=== PATIENT | female | born 1975 | race American Indian/Alaskan Native ===

== ENCOUNTER 2018-02-23 04:28 | Emergency (ER) | payer MEDICAID ==
[2018-02-23] MEDS ORDERED: ATIVAN ONE (05:02)
[2018-02-23] MEDS ORDERED: ATIVAN IV ONE (05:08)
--- NOTE | 2018-02-23 05:10 | Emergency Department Report ---
<CRISTO HANNON - Last Filed: 02/23/18 05:08> ED Seizure HPI - General Chief Complaint: Seizure Stated Complaint: SEIZURE Time Seen by Provider: 02/23/18 05:08 Source: family, EMS Mode of arrival: Stretcher Limitations: Other - History of Present Illness Initial Comments: 42-year-old patient with known seizure disorder, currently taking antiepileptic medications, had spontaneous onset of grand mal seizure at home during the evening shortly prior to arrival. EMS was called, seizure lasted for approximately 10-15 minutes until their arrival, and subsided spontaneously before EMS could give any additional medication. However, seizure recurred within about 10-15 minutes, and EMS gave 5 mg of Versed with rapid control of seizure. Patient was transported without seizure activity, but not having regained consciousness, and experienced to recurrent seizures in rapid succession shortly after arrival in the emergency department, which were treated with 2 mg of lorazepam, each time, with rapid sensation of seizure activity. - Related Data Allergies Allergy/AdvReac Type Severity Reaction Status Date / Time No Known Allergies Allergy Unverified 02/23/18 05:03 ED Review of Systems ROS: Stated complaint: SEIZURE Other details as noted in HPI ED Past Medical Hx - Past Medical History Previous Medical History?: Yes Hx Seizures: Yes ED Physical Exam - General Limitations: Other ED Course Vital Signs 02/23/18 02/23/18 05:47 07:35 Temperature 98.4 F Pulse Rate 99 H Respiratory 16 14 Rate Blood Pressure 132/83 [Right] O2 Sat by Pulse 100 100 Oximetry Critical care attestation.: If time is entered above; I have spent that time in minutes in the direct care of this critically ill patient, excluding procedure time. ED Disposition Clinical Impression: Seizure Disposition: DC-01 TO HOME OR SELFCARE Condition: Stable Instructions: Recurrent Seizures Adult (ED) Referrals: SHANKAR BROWN MD [Primary Care Provider] - 3-5 Days <RAMA PAZ - Last Filed: 02/23/18 13:56> ED Course - Reevaluation(s) Reevaluation #1: 02/23/18 13:54 Patient observed in the ER, no seizure activity observed. Patient is alert and oriented 3. I started the patient on A 500 mg twice a day. I advised the patient to follow-up with her neurologist in the next 2-3 days. I also advised the patient to return to the ER if her symptoms return. ED Medical Decision Making - Lab Data Result diagrams: 02/23/18 05:28 02/23/18 05:28 ED Disposition Is pt being admited?: No
[2018-02-23] MEDS ORDERED: ATIVAN IV PRN (05:11)
[2018-02-23 05:45] LABS: Hematocrit 35.3 % (30.3-42.9); Hemoglobin 11.5 gm/dl (10.1-14.3); Mean Corpuscular HGB Conc 33 % (30-34); Mean Corpuscular Hemoglobin 29 pg (28-32); Mean Corpuscular Volume 88 fl (79-97); Platelet Count 261 K/mm3 (140-440); Red Blood Count 4.03 M/mm3 (3.65-5.03); Red Cell Distribution Width 13.8 % (13.2-15.2)
[2018-02-23 06:00] LABS: BUN/Creatinine Ratio 30; Blood Urea Nitrogen 12 mg/dL (7-17); Calcium 8.3 mg/dL (8.4-10.2); Hemolysis Index 3
--- NOTE | 2018-02-23 06:46 | Cat Scan Report ---
FINAL REPORT PROCEDURE: CT HEAD/BRAIN WO CON TECHNIQUE: Computerized tomography of the head was performed without contrast material. HISTORY: seizure COMPARISON: No prior studies are available for comparison. FINDINGS: Skull and scalp: Normal. Paranasal sinuses: Normal. Ventricles and subarachnoid spaces: Normal. Cerebrum: No evidence of hemorrhage, acute infarction or mass . Cerebellum and brainstem: No evidence of hemorrhage, acute infarction or mass. Vasculature: Normal. Comments: None. IMPRESSION: Normal Examination
[2018-02-23] MEDS ORDERED: KEPPRA 1,000 MG/NS 0.75% 100ML 1,000 MG/100 ML BAG IV ONE ×2 (09:12→11:34)
[2018-02-23 13:20] LABS: Bacteria,Urine 1+ /HPF (Negative); Bilirubin,Urine NEG (Negative); Blood,Urine MOD (Negative); Color,Urine Yellow (Yellow); Mucus,Urine FEW /HPF; Protein,Urine <15 mg/dL mg/dL (Negative); Urobilinogen,Urine < 2.0 mg/dL (<2.0)
[2018-02-23 13:22] LABS: Amphetamine Screen,Urine PRESUMPTIVE NEGATIVE; Cannabinoid Screen,Urine PRESUMPTIVE NEGATIVE; Cocaine Screen,Urine PRESUMPTIVE NEGATIVE; Methadone Screen,Urine PRESUMPTIVE NEGATIVE; Opiate Screen,Urine PRESUMPTIVE NEGATIVE
[2018-02-23 13:43] LABS: Benzodiazepines Screen,Urine PRESUMPTIVE POSITIVE
[2018-02-23 14:52] VITALS: BP 116/84
== END 2018-02-23 14:45 | disposition home or self-care (01) ==
LOC: ED 04:28
DX: G40.909 Epilepsy, unspecified, not intractable, without status epilepticus (principal)
CPT/HCPCS: 36415; 70450; 80048; 80307; 81001; 84703; 85027; 93005; 93010; 96374; 96375; 99285; J1953; J2060

== ENCOUNTER 2018-04-14 08:03 | Outpatient (CLI) | payer MEDICAID ==
--- NOTE | 2018-04-14 13:38 | Cat Scan Report ---
CT ABDOMEN PELVIS WITH CONTRAST: HISTORY: Right lower quadrant pain, hematuria. COMPARISON: none. TECHNIQUE: Helical CT in 1.25mm intervals following IV contrast. Sagittal and coronal reconstructions. FINDINGS: Lung bases: Normal. Liver: Normal. Biliary system: Cholecystectomy. No biliary dilatation. Pancreas: Normal. Spleen: Normal. Kidneys/ureters/bladder: The 3.2 cm cyst in the mid left kidney is identified. Otherwise, the kidneys, ureters and bladder are unremarkable. Adrenal glands: Normal. Aorta: Normal. Intestines: Normal. Appendix: Normal. Pelvic viscera: A 1.5 cm right ovarian cyst is identified. The uterus and left adnexa are unremarkable. Ascites: None. Adenopathy: None. Musculoskeletal: The bony structures are intact with minimal degenerative changes. A small umbilical hernia containing fat is identified. IMPRESSION: No acute process is identified. 3.2 cm left ovarian cyst. 1.5 cm right ovarian cyst. Cholecystectomy. Small umbilical hernia containing fat.
== END 2018-04-14 08:04 | disposition home or self-care (01) ==
LOC: CT 08:03
PROVIDERS: ATTEND Nurse Practitioner
DX: Z90.49 Acquired absence of other specified parts of digestive tract (principal); N28.1 Cyst of kidney, acquired; R31.9 Hematuria, unspecified; N83.201 Unspecified ovarian cyst, right side; K42.9 Umbilical hernia without obstruction or gangrene; N83.202 Unspecified ovarian cyst, left side
CPT/HCPCS: 74177; Q9967

== ENCOUNTER 2018-11-13 02:22 | Emergency (ER) | payer MEDICAID ==
[2018-11-13] MEDS ORDERED: ATIVAN ONE ×3 (02:30→02:34)
[2018-11-13] MEDS ORDERED: KEPPRA 1,000 MG/NS 0.75% 100ML 1,000 MG/100 ML BAG IV ONE ×2 (02:33→02:40)
[2018-11-13] MEDS ORDERED: ATIVAN IV ONE (02:42)
--- NOTE | 2018-11-13 02:43 | Emergency Department Report ---
ED Seizure HPI - General Chief Complaint: Seizure Stated Complaint: SEIZURE Time Seen by Provider: 11/13/18 02:39 Source: EMS (verbal report received from EMS.ems notes not available at time of chart dictation), RN notes reviewed, old records reviewed Mode of arrival: Stretcher Limitations: Altered Mental Status - History of Present Illness Initial Comments: This is a 43-year-old female, not known to this provider previously, who may have a history of seizure disorder. The patient is brought to the hospital by EMS for reported seizing. As per verbal report from EMS, patient had normal Accu-Chek, and was shaking in the field, nontraumatic. They report that the patient has been having intermittent convulsions, and at one point, after her first episode, tolerated oral Keppra. They report the patient has been shaking on and off for around 25 minutes. They gave 2 mg of Versed in the field. Upon arrival to the ER, the patient is having generalized shaking, most prominently in her upper extremities. Her head is moving back and forth. Accu-Chek within normal limits. Patient given 2 mg of Ativan, 1 g of Keppra, and 4 mg of Ativan additionally. This terminated her convulsions. Of note, when the patient's upper extremities were lifted up individually, the patient appeared to have each extremity drop down to her side, and a slow controlled fashion, and appeared to avoid having her upper extremities fall onto her chest or forehead. Her significant other is currently in the emergency room, and he reports patient was in her usual state of health, May have missed her seizure medication earlier on today, and also reports that he and the patient got into an argument about something" I think that may have triggered her seizure." Patient is currently sleepy, and has not endorsed any complaints. Her boyfriend has indicated no fevers, vomiting, trauma, syncope. MD Complaint: seizure, possible seizure, shaking -: Gradual Description of Episode: loss of consciousness -: second(s) Witnessed:: Yes Trauma: No Seizure History: known seizure disorder, history of non-compliance Place: home Treatments Prior to Arrival: benzodiazepines - Related Data Home Medications Medication Instructions Recorded Confirmed Last Taken Ciprofloxacin HCl [Ciloxan] 5 ml OP Q2H 02/23/18 02/23/18 Unknown Sertraline [Zoloft] 200 mg PO QDAY 02/23/18 02/23/18 Unknown Previous Rx's Medication Instructions Recorded Last Taken Type RX: OXcarbazepine [Trileptal] 300 mg PO BID #60 tablet 11/13/18 Unknown Rx RX: levETIRAcetam [Keppra TAB] 750 mg PO BID #90 tablet 11/13/18 Unknown Rx Allergies Allergy/AdvReac Type Severity Reaction Status Date / Time No Known Allergies Allergy Unverified 02/23/18 05:03 ED Review of Systems ROS: Stated complaint: SEIZURE Other details as noted in HPI Comment: Unobtainable due to pts medical conditions ED Past Medical Hx - Past Medical History Hx Seizures: Yes - Social History Smoking Status: Never Smoker - Medications Home Medications: Home Medications Medication Instructions Recorded Confirmed Last Taken Type Ciprofloxacin HCl [Ciloxan] 5 ml OP Q2H 02/23/18 02/23/18 Unknown History Sertraline [Zoloft] 200 mg PO QDAY 02/23/18 02/23/18 Unknown History RX: OXcarbazepine [Trileptal] 300 mg PO BID #60 tablet 11/13/18 Unknown Rx RX: levETIRAcetam [Keppra TAB] 750 mg PO BID #90 tablet 11/13/18 Unknown Rx ED Physical Exam - General Limitations: Other (patient initially turning head back and forth, and having shaking her upper extremities) General appearance: alert, in no apparent distress - Head Head exam: Present: atraumatic, normocephalic - Eye Eye exam: Present: normal appearance, PERRL - ENT ENT exam: Present: normal exam, normal orophraynx, mucous membranes moist, normal external ear exam - Neck Neck exam: Present: normal inspection, full ROM. Absent: tenderness, meningismu s - Respiratory Respiratory exam: Present: decreased breath sounds. Absent: respiratory distress, wheezes, rales, rhonchi, stridor - Cardiovascular Cardiovascular Exam: Present: normal rhythm, tachycardia, normal heart sounds. Absent: systolic murmur, diastolic murmur, rubs, gallop - GI/Abdominal GI/Abdominal exam: Present: soft. Absent: distended, tenderness, guarding, rebound, rigid, pulsatile mass - Extremities Exam Extremities exam: Present: normal inspection, full ROM, other (2+ pulses noted in the bilateral upper, lower extremities. Compartments soft. No long bony tenderness. The pelvis is stable.). Absent: pedal edema, joint swelling, calf tenderness - Back Exam Back exam: Present: normal inspection. Absent: tenderness, CVA tenderness (R) - Neurological Exam Neurological exam: Present: altered, other (moving 4 extremities prior to ER intervention, now resting comfortably, occasionally moving 4 extremities. Patient has answered some nursing questions, but is sleepy and not answering any of my questions at this point in time. A detailed neurologic examination is not performed secondary to patient's altered mental status.) - Skin Skin exam: Present: warm, dry, intact, normal color. Absent: rash ED Course Vital Signs 11/13/18 11/13/18 11/13/18 00:51 01:00 01:22 Temperature Pulse Rate 76 72 Respiratory 20 22 Rate Blood Pressure 115/74 115/74 115/74 O2 Sat by Pulse 98 98 68 L Oximetry 11/13/18 11/13/18 11/13/18 01:30 02:28 02:30 Temperature Pulse Rate 115 H Respiratory Rate Blood Pressure 115/74 O2 Sat by Pulse 69 L 95 100 Oximetry 11/13/18 11/13/18 11/13/18 02:46 02:53 03:00 Temperature 98.5 F Pulse Rate 107 H 108 H 113 H Respiratory 24 18 25 H Rate Blood Pressure 112/61 112/67 115/74 O2 Sat by Pulse 100 98 96 Oximetry 11/13/18 11/13/18 11/13/18 03:16 03:30 03:46 Temperature Pulse Rate 115 H 120 H 115 H Respiratory 22 23 22 Rate Blood Pressure 115/74 128/81 128/81 O2 Sat by Pulse 94 96 94 Oximetry 11/13/18 11/13/18 11/13/18 04:18 04:30 04:46 Temperature Pulse Rate 112 H 113 H Respiratory 23 26 H Rate Blood Pressure 128/81 103/57 128/81 O2 Sat by Pulse 95 94 95 Oximetry 11/13/18 11/13/18 11/13/18 05:00 05:16 05:30 Temperature Pulse Rate 118 H 104 H 107 H Respiratory 18 21 21 Rate Blood Pressure 128/81 128/81 112/64 O2 Sat by Pulse 97 95 95 Oximetry 11/13/18 11/13/18 11/13/18 05:46 06:00 06:16 Temperature Pulse Rate 111 H 101 H 98 H Respiratory 24 20 20 Rate Blood Pressure 112/64 112/64 112/64 O2 Sat by Pulse 98 96 96 Oximetry 11/13/18 11/13/18 06:30 06:45 Temperature Pulse Rate 101 H Respiratory 20 20 Rate Blood Pressure 119/65 O2 Sat by Pulse 97 99 Oximetry - Reevaluation(s) Reevaluation #1: 11/13/18 03:36 Differential diagnosis, including a not limited to: Seizure, pseudoseizure, pneumonia, electrolyte derangement, urinary tract infection Assessment and plan: 43-year-old female brought to the ER by EMS with shaking, most prominently in her bilateral upper extremities, with head turning side to side, a boyfriend endorsing that they got into an argument and shortly thereafter her event was "trigger", patient is not currently seizing at this time. She is protecting her airway at this time. Screening laboratory studies, EKG, urinalysis, x-ray of the chest, noncontrast CT scan of the brain pending. We will await the return of these data points, and continue to provide supportive care to the patient. Reevaluation #2: 11/13/18 04:58 Chest x-ray negative for acute disease. Reevaluation #3: 11/13/18 05:07 CT scan of the brain is negative for acute disease Reevaluation #4: 11/13/18 05:35 Patient reassessed multiple times. No additional convulsive events. Nursing staff indicates the patient is able to follow their commands, and has answered some simple questions. Urinalysis pending at this time. I go back to evaluate the patient, she is sleeping comfortably, arousable, but still somewhat sleepy and not ready for discharge at this point in time. Care will be transferred to the oncoming physician, Dr. Prather, to reassess the patient for return to mental status baseline and discharged when able to ambulate an alert and oriented 3, and able to exhibit decision-making capacity. He will also follow up on the urinalysis. ED Medical Decision Making - Lab Data Result diagrams: 11/13/18 02:58 11/13/18 02:58 Vital Signs 11/13/18 02:53 Temperature 98.5 F Pulse Rate 108 H Respiratory 18 Rate Blood Pressure 112/67 O2 Sat by Pulse 98 Oximetry Lab Results 11/13/18 11/13/18 11/13/18 Range/Units 02:58 02:58 02:58 WBC 9.1 (4.5-11.0) K/mm3 RBC 4.13 (3.65-5.03) M/mm3 Hgb 11.8 (10.1-14.3) gm/dl Hct 36.4 (30.3-42.9) % MCV 88 (79-97) fl MCH 29 (28-32) pg MCHC 33 (30-34) % RDW 14.0 (13.2-15.2) % Plt Count 233 (140-440) K/mm3 Lymph % (Auto) 24.1 (13.4-35.0) % [place] % (Auto) 7.9 H (0.0-7.3) % Eos % (Auto) 2.8 (0.0-4.3) % Baso % (Auto) 0.8 (0.0-1.8) % Lymph # 2.2 (1.2-5.4) K/mm3 [place] # 0.7 (0.0-0.8) K/mm3 Eos # 0.3 (0.0-0.4) K/mm3 Baso # 0.1 (0.0-0.1) K/mm3 Seg Neutrophils % 64.4 (40.0-70.0) % Seg Neutrophils # 5.9 (1.8-7.7) K/mm3 Sodium 140 (137-145) mmol/L Potassium 3.6 (3.6-5.0) mmol/L Chloride 102.6 (98-107) mmol/L Carbon Dioxide 25 (22-30) mmol/L Anion Gap 16 mmol/L BUN 7 (7-17) mg/dL Creatinine 0.4 L (0.7-1.2) mg/dL Estimated GFR > 60 ml/min BUN/Creatinine Ratio 18 % Glucose 121 H (65-100) mg/dL Calcium 9.2 (8.4-10.2) mg/dL Magnesium (1.7-2.3) mg/dL Total Bilirubin 0.30 (0.1-1.2) mg/dL AST 12 (5-40) units/L ALT 12 (7-56) units/L Alkaline Phosphatase 54 (35-129) units/L Total Creatine Kinase (30-135) units/L Total Protein 6.3 (6.3-8.2) g/dL Albumin 4.2 (3.9-5) g/dL Albumin/Globulin Ratio 2.0 % Plasma/Serum Alcohol < 0.01 (0-0.07) % 11/13/18 Range/Units 02:58 WBC (4.5-11.0) K/mm3 RBC (3.65-5.03) M/mm3 Hgb (10.1-14.3) gm/dl Hct (30.3-42.9) % MCV (79-97) fl MCH (28-32) pg MCHC (30-34) % RDW (13.2-15.2) % Plt Count (140-440) K/mm3 Lymph % (Auto) (13.4-35.0) % [place] % (Auto) (0.0-7.3) % Eos % (Auto) (0.0-4.3) % Baso % (Auto) (0.0-1.8) % Lymph # (1.2-5.4) K/mm3 [place] # (0.0-0.8) K/mm3 Eos # (0.0-0.4) K/mm3 Baso # (0.0-0.1) K/mm3 Seg Neutrophils % (40.0-70.0) % Seg Neutrophils # (1.8-7.7) K/mm3 Sodium (137-145) mmol/L Potassium (3.6-5.0) mmol/L Chloride (98-107) mmol/L Carbon Dioxide (22-30) mmol/L Anion Gap mmol/L BUN (7-17) mg/dL Creatinine (0.7-1.2) mg/dL Estimated GFR ml/min BUN/Creatinine Ratio % Glucose (65-100) mg/dL Calcium (8.4-10.2) mg/dL Magnesium 1.70 (1.7-2.3) mg/dL Total Bilirubin (0.1-1.2) mg/dL AST (5-40) units/L ALT (7-56) units/L Alkaline Phosphatase (35-129) units/L Total Creatine Kinase 79 (30-135) units/L Total Protein (6.3-8.2) g/dL Albumin (3.9-5) g/dL Albumin/Globulin Ratio % Plasma/Serum Alcohol (0-0.07) % - EKG Data -: EKG Interpreted by Me EKG shows normal: sinus rhythm Rate: tachycardia - EKG Data 11/13/18 04:58 Tachycardia, 109 bpm, normal axis, QTC prolonged, not consistent with ST elevation myocardial infarction. - Radiology Data Radiology results: pending, report reviewed, image reviewed Critical Care Time: Yes Critical care time in (mins) excluding proc time.: 35 Critical care attestation.: If time is entered above; I have spent that time in minutes in the direct care of this critically ill patient, excluding procedure time. ED Disposition Clinical Impression: History of convulsions Disposition: - TO HOME OR SELFCARE Is pt being admited?: No Does the pt Need Aspirin: No Condition: Good Instructions: Recurrent Seizures Adult (ED) Additional Instructions: Do not drive or operate motor vehicles for the next 6 months. Take the medications as directed. Follow-up with your private neurologist, or any of the listed local primary neurologists, within the next 7-10 days for repeat checku p/evaluation. Return to the ER right away with lethargy, irritability, projectile vomiting, change in mental status, confusion, inability to speak, inability to breathe, new, worse or different symptoms. Prescriptions: RX: levETIRAcetam [Keppra TAB] 750 mg PO BID #90 tablet RX: OXcarbazepine [Trileptal] 300 mg PO BID #60 tablet Referrals: JOSE FELIZ MD [Staff Physician] - 3-5 Days SABINE CABRERA MD [Referring] - 3-5 Days JUAN CONNELL MD [Staff Physician] - 3-5 Days
[2018-11-13 03:18] LABS: Basophils # (Auto) 0.1 K/mm3 (0.0-0.1); Basophils % (Auto) 0.8 % (0.0-1.8); Eosinophils # (Auto) 0.3 K/mm3 (0.0-0.4); Eosinophils % (Auto) 2.8 % (0.0-4.3); Hematocrit 36.4 % (30.3-42.9); Hemoglobin 11.8 gm/dl (10.1-14.3); Lymphocytes # (Auto) 2.2 K/mm3 (1.2-5.4); Lymphocytes % (Auto) 24.1 % (13.4-35.0); Mean Corpuscular HGB Conc 33 % (30-34); Mean Corpuscular Volume 88 fl (79-97); Monocytes # (Auto) 0.7 K/mm3 (0.0-0.8); Monocytes % (Auto) 7.9 % (0.0-7.3); Platelet Count 233 K/mm3 (140-440); Red Blood Count 4.13 M/mm3 (3.65-5.03)
[2018-11-13] MEDS ORDERED: NACL 0.9% 1000 ML 1,000 ML IV ONE (03:32)
[2018-11-13 03:33] LABS: Alanine Aminotransferase 12 units/L (7-56); Albumin 4.2 g/dL (3.9-5); BUN/Creatinine Ratio 18; Blood Urea Nitrogen 7 mg/dL (7-17); Calcium 9.2 mg/dL (8.4-10.2); Hemolysis Index 11
--- NOTE | 2018-11-13 04:48 | XRay Report ---
FINAL REPORT PROCEDURE: XR CHEST 1V AP TECHNIQUE: Chest radiograph anteroposterior view. CPT 73903 HISTORY: sz ams COMPARISON: No prior studies are available for comparison. FINDINGS: Heart: Normal. Mediastinum/Vessels: Normal. Lungs/Pleural space: The lungs are clear and expanded. There is no infiltrate, effusion or pneumothor ax.. Bony thorax: No acute osseous abnormality. Life support devices: None. IMPRESSION: No acute cardiopulmonary abnormality.
--- NOTE | 2018-11-13 05:01 | Cat Scan Report ---
FINAL REPORT PROCEDURE: CT HEAD/BRAIN WO CON TECHNIQUE: Computerized tomography of the head was performed without contrast material. HISTORY: Seizure COMPARISON: No prior studies are available for comparison. FINDINGS: Skull and scalp: Normal. Paranasal sinuses: Normal. Ventricles and subarachnoid spaces: Normal. Cerebrum: No evidence of hemorrhage, acute infarction or mass . Cerebellum and brainstem: No evidence of hemorrhage, acute infarction or mass. Vasculature: Normal. Comments: None. IMPRESSION: Normal Examination
[2018-11-13 05:58] LABS: Bilirubin,Urine NEG (Negative); Blood,Urine NEG (Negative); Color,Urine Straw (Yellow); Hyaline Casts,Urine 1 /LPF; Protein,Urine <15 mg/dL mg/dL (Negative); Urobilinogen,Urine < 2.0 mg/dL (<2.0); WBC,Urine < 1.0 /HPF (0.0-6.0)
[2018-11-13 06:42] VITALS: BP 119/65
== END 2018-11-13 13:45 | disposition home or self-care (01) ==
LOC: ED 02:22
DX: G40.909 Epilepsy, unspecified, not intractable, without status epilepticus (principal)
CPT/HCPCS: 36415; 70450; 71045; 80053; 81001; 82550; 82962; 83735; 84702; 85025; 93005; 93010; 96374; 96375; 99285; G0480; J1953; J2060; 80320; 96361; 99291

== ENCOUNTER 2018-12-09 20:25 | Emergency (ER) | payer MEDICAID ==
[2018-12-09] MEDS ORDERED: MORPHINE IM ONE ×2 (20:51)
[2018-12-09] MEDS ORDERED: ZOFRAN IM ONE ×2 (20:51)
--- NOTE | 2018-12-09 20:54 | Emergency Department Report ---
ED Back Pain/Injury HPI - General Chief Complaint: Abdominal Pain Stated Complaint: BILATERAL FLANK PAIN Time Seen by Provider: 12/09/18 20:45 Source: EMS Limitations: No Limitations - History of Present Illness Initial Comments: Patient is 43 years old female with history of seizure on Keppra. Patient presented to the ER complaining of lower back pain and right flank pain for the last 4 days. Patient has been stated that patient bend to become something few days ago and since then she started having pain in her back. Patient denied any weakness, numbness or tingling sensation. No bowel or bladder incontinence. Patient also denied any fever. MD Complaint: back pain -: days(s) Radiation: none Severity: moderate Consistency: constant Improves With: immobilization Worsens With: movement Context: bending Associated Symptoms: denies other symptoms - Related Data Home Medications Medication Instructions Recorded Confirmed Last Taken Ciprofloxacin HCl [Ciloxan] 5 ml OP Q2H 02/23/18 02/23/18 Unknown Sertraline [Zoloft] 200 mg PO QDAY 02/23/18 02/23/18 Unknown Previous Rx's Medication Instructions Recorded Last Taken Type OXcarbazepine [Trileptal] 300 mg PO BID #60 tablet 11/13/18 Unknown Rx levETIRAcetam [Keppra TAB] 750 mg PO BID #90 tablet 11/13/18 Unknown Rx Allergies Allergy/AdvReac Type Severity Reaction Status Date / Time No Known Allergies Allergy Unverified 02/23/18 05:03 ED Review of Systems ROS: Stated complaint: BILATERAL FLANK PAIN Other details as noted in HPI Comment: All other systems reviewed and negative Constitutional: denies: chills, fever Respiratory: denies: cough, orthopnea, shortness of breath, SOB with exertion, SOB at rest, wheezing Cardiovascular: denies: chest pain, palpitations, dyspnea on exertion, orthopnea, edema, syncope, paroxysmal nocturnal dyspnea Gastrointestinal: denies: abdominal pain, nausea, vomiting, diarrhea, constipation, hematemesis, melena, hematochezia Musculoskeletal: back pain Neurological: denies: headache, weakness, numbness, paresthesias, confusion, abnormal gait ED Past Medical Hx - Past Medical History Hx Seizures: Yes - Surgical History Past Surgical History?: No - Social History Smoking Status: Never Smoker Substance Use Type: None - Medications Home Medications: Home Medications Medication Instructions Recorded Confirmed Last Taken Type Ciprofloxacin HCl [Ciloxan] 5 ml OP Q2H 02/23/18 02/23/18 Unknown History Sertraline [Zoloft] 200 mg PO QDAY 02/23/18 02/23/18 Unknown History OXcarbazepine [Trileptal] 300 mg PO BID #60 tablet 11/13/18 Unknown Rx levETIRAcetam [Keppra TAB] 750 mg PO BID #90 tablet 11/13/18 Unknown Rx ED Physical Exam - General Limitations: No Limitations General appearance: alert, in no apparent distress - Head Head exam: Present: atraumatic, normocephalic, normal inspection - Eye Eye exam: Present: normal appearance, PERRL - ENT ENT exam: Present: normal exam, normal orophraynx, mucous membranes moist - Neck Neck exam: Present: normal inspection, full ROM. Absent: tenderness, meningismus, lymphadenopathy, thyromegaly - Respiratory Respiratory exam: Present: normal lung sounds bilaterally. Absent: respiratory distress, wheezes, rales, rhonchi, stridor, chest wall tenderness, accessory muscle use, decreased breath sounds, prolonged expiratory - Cardiovascular Cardiovascular Exam: Present: regular rate, normal rhythm, normal heart sounds - GI/Abdominal GI/Abdominal exam: Present: soft, normal bowel sounds. Absent: distended, tenderness, guarding, rebound, rigid, organomegaly, mass, bruit, pulsatile mass, hernia - Extremities Exam Extremities exam: Present: normal inspection, full ROM, normal capillary refill. Absent: pedal edema, calf tenderness - Back Exam Back exam: Present: normal inspection, full ROM, muscle spasm. Absent: tenderness, CVA tenderness (R), paraspinal tenderness, vertebral tenderness, sally h noted - Neurological Exam Neurological exam: Present: alert, oriented X3, CN II-XII intact, normal gait, reflexes normal - Skin Skin exam: Present: warm, intact, normal color ED Course Vital Signs 12/09/18 12/09/18 20:27 20:36 Temperature 98.2 F Pulse Rate 85 Respiratory 20 20 Rate Blood Pressure 150/107 [Left] O2 Sat by Pulse 100 100 Oximetry ED Medical Decision Making - Lab Data Result diagrams: 12/09/18 21:25 12/09/18 21:25 - Radiology Data Radiology results: report reviewed - Medical Decision Making Patient is 43 years old female with history of seizure on Keppra. Patient presented to the ER complaining of lower back pain and right flank pain for the last 4 days. Patient has been stated that patient bend to become something few days ago and since then she started having pain in her back. Patient denied any weakness, numbness or tingling sensation. No bowel or bladder incontinence. Patient also denied any fever. Patient stated that she is feeling much better. A CT abdomen and pelvis u nremarkable. Urine is negative and rest of the labs are unremarkable 2. I believe patient's symptoms is most likely musculoskeletal. We will prescribe Naprosyn 500 mg twice a day for 7 days and Flexeril and advised the patient to follow up with her primary care physician in the next 2-3 days and to return to the ER if her symptoms are not improved. Critical care attestation.: If time is entered above; I have spent that time in minutes in the direct care of this critically ill patient, excluding procedure time. ED Disposition Clinical Impression: Back pain Disposition: DC-01 TO HOME OR SELFCARE Is pt being admited?: No Condition: Stable Instructions: Abdominal Pain (ED), Acute Low Back Pain (ED) Referrals: DAVIE SMITH MD [Primary Care Provider] - 3-5 Days
[2018-12-09 21:25] LABS: Bilirubin,Urine NEG (Negative); Blood,Urine SM (Negative); Color,Urine Yellow (Yellow); Mucus,Urine FEW /HPF; Protein,Urine <15 mg/dL mg/dL (Negative); Urobilinogen,Urine < 2.0 mg/dL (<2.0)
[2018-12-09 21:32] LABS: HCG Qualitative,Urine Negative (Negative)
[2018-12-09 21:37] LABS: Basophils # (Auto) 0.1 K/mm3 (0.0-0.1); Basophils % (Auto) 1.1 % (0.0-1.8); Eosinophils # (Auto) 0.4 K/mm3 (0.0-0.4); Eosinophils % (Auto) 4.4 % (0.0-4.3); Hematocrit 35.4 % (30.3-42.9); Hemoglobin 11.4 gm/dl (10.1-14.3); Lymphocytes # (Auto) 2.2 K/mm3 (1.2-5.4); Lymphocytes % (Auto) 25.2 % (13.4-35.0); Mean Corpuscular HGB Conc 32 % (30-34); Mean Corpuscular Volume 88 fl (79-97); Monocytes # (Auto) 0.7 K/mm3 (0.0-0.8); Monocytes % (Auto) 8.5 % (0.0-7.3); Platelet Count 263 K/mm3 (140-440); Red Blood Count 4.01 M/mm3 (3.65-5.03); Red Cell Distribution Width 13.9 % (13.2-15.2)
[2018-12-09 21:53] LABS: BUN/Creatinine Ratio 15; Blood Urea Nitrogen 9 mg/dL (7-17); Calcium 9.1 mg/dL (8.4-10.2); Hemolysis Index 14
--- NOTE | 2018-12-10 00:07 | Cat Scan Report ---
FINAL REPORT PROCEDURE: CT abdomen and pelvis without contrast. TECHNIQUE: Computerized axial tomography of the abdomen and pelvis was performed without intravenous contrast. This study is performed without intravascular contrast material and its sensitivity for ab dominal and pelvic pathology, including neoplasms, inflammation, abscess, free fluid, thrombosis, art erial dissection and infarction, is reduced compared with a contrast enhanced study. HISTORY: Abdominal pain, right flank pain. COMPARISON: CT abdomen and pelvis 04/14/2018. FINDINGS: There is a small nodule or cluster of 3 adjacent nodules located laterally in the right middle lobe. This appears identical to the previous study. It likely represents a benign process. The lung bases a re otherwise clear. There are no pleural effusions. The heart size is normal. The liver, pancreas and spleen are grossly normal. Cholecystectomy clips are present. There is no biliary dilatation. The ad renal glands are not enlarged. Both kidneys appear normal in size and configuration. There is a round ed area of low attenuation in the lower half of the left kidney. This represented a cyst on the previ ous study. The abdominal aorta has a normal caliber. There is no retroperitoneal adenopathy. The unop acified gastrointestinal tract is unremarkable. A normal appendix is visible. There is a small umbili ellie hernia containing fat. The bladder, uterus and adnexal regions appear normal. The regional skelet on appears intact. IMPRESSION: Small nodule or cluster of 3 smaller nodules in the right middle lobe, unchanged. Previous cholecyste ctomy. Left renal cyst. Small umbilical hernia containing fat. No definite signs of acute disease in the abdomen or pelvis.
[2018-12-10 00:40] VITALS: BP 130/78
== END 2018-12-10 00:39 | disposition home or self-care (01) ==
LOC: ED 20:25
DX: M54.5 Low back pain (principal); R10.9 Unspecified abdominal pain
CPT/HCPCS: 36415; 74176; 80048; 81001; 81025; 85025; 96372; 99284; J2270; J2405

== ENCOUNTER 2019-01-20 09:14 | Outpatient (CLI) | payer MEDICAID ==
[2019-01-20 11:25] LABS: Chol/HDL Ratio 3.53 %
== END 2019-01-20 09:15 | disposition home or self-care (01) ==
LOC: LAB 09:14
PROVIDERS: ATTEND Internal Medicine
DX: Z00.01 Encounter for general adult medical examination with abnormal findings (principal); E55.9 Vitamin D deficiency, unspecified; E66.01 Morbid (severe) obesity due to excess calories; R31.9 Hematuria, unspecified
CPT/HCPCS: 36415; 80061; 82306

== ENCOUNTER 2019-02-04 12:30 | Outpatient (CLI) | payer MEDICAID ==
--- NOTE | 2019-02-04 13:39 | Ultrasound Report ---
LEFT DIGITAL DIAGNOSTIC MAMMOGRAM and LEFT BREAST ULTRASOUND: 02/04/19 12:30:00 CLINICAL: Recalled for asymmetry. COMPARISON:11/06/18 screening FINDINGS: Lateralmedial and spot compression MLO and CC views were performed.Partial effacement of asymmetries on the spot images. This appears to be normal fibroglandular structures. Ultrasound of the left breast was performed from 11 o'clock to 1 o'clock and demonstrated normal structures with no mass, cyst or shadowing. A subtle island of fibroglandular structures is identified at 1 o'clock and this correlates with the mammographic finding. IMPRESSION: Negative mammogram and negative left breast ultrasound. BI-RADS CATEGORY: 1 -- Negative RECOMMENDATION: Routine mammographic screening in one year. ACR BI-RADS MAMMOGRAPHIC CODES: 0 = Needs additional imaging evaluation; 1 = Negative; 2 = Benign; 3 = Probably benign; 4 = Suspicious; 5 = Malignant; 6 = Known biopsy-proven malignancy COMMENT: 1. Dense breast tissue, i.e., adenosis, fibrocystic changes, etc., may obscure an underlying neoplasm. 2. Approximately 10% of cancers are not detected with mammography. 3. A negative mammography report should not delay biopsy if a clinically suspicious mass is present. COMMENT: Patient follow-up letters are generated via our [employer] application.
== END 2019-02-04 12:31 | disposition home or self-care (01) ==
LOC: MAMMO 12:30
PROVIDERS: ATTEND Internal Medicine
DX: R92.8 Other abnormal and inconclusive findings on diagnostic imaging of breast (principal)

== ENCOUNTER 2019-05-27 20:24 | Inpatient (IN) | payer MEDICAID ==
[2019-05-27] MEDS ORDERED: KEPPRA 1,000 MG/NS 0.75% 100ML 1,000 MG/100 ML BAG IV ONE (20:35)
--- NOTE | 2019-05-27 20:39 | Emergency Department Report ---
HPI - General Time Seen by Provider: 05/27/19 20:31 - HPI HPI: Room 17 The patient is a 44-year-old female presenting with chief complaint seizure. The patient poorly has a history of seizures and has been noncompliant with her medication. The patient reported having a generalized tonic-clonic seizure lasting 3 minutes. The patient was administered Versed 5 mg IV by EMS prior to arrival. The patient apparently postictal and does not respond to questions Location: [See above] Duration: [See above] Quality: [See above] Severity: [See above] Modifying factors: [see above] Context: [see above] Mode of transportation: [not driving] ED Past Medical Hx - Past Medical History Hx Seizures: Yes - Surgical History Past Surgical History?: No - Family History Family history: no significant - Social History Smoking Status: Unknown if ever smoked Substance Use Type: None - Medications Home Medications: Home Medications Medication Instructions Recorded Confirmed Last Taken Type Ciprofloxacin HCl [Ciloxan] 5 ml OP Q2H 02/23/18 02/23/18 Unknown History Sertraline [Zoloft] 200 mg PO QDAY 02/23/18 02/23/18 Unknown History OXcarbazepine [Trileptal] 300 mg PO BID #60 tablet 11/13/18 Unknown Rx levETIRAcetam [Keppra TAB] 750 mg PO BID #90 tablet 11/13/18 Unknown Rx Cyclobenzaprine [Flexeril] 10 mg PO TID PRN #20 tablet 12/10/18 Unknown Rx Naproxen [Naprosyn] 500 mg PO BID #14 tablet 12/10/18 Unknown Rx ED Review of Systems ROS: Stated complaint: SEIZURE Other details as noted in HPI Comment: Unobtainable due to pts medical conditions Physical Exam - Physical Exam Physical Exam: GENERAL: The patient is well-developed well-nourished female lying on stretcher in postictal state. [] HEENT: Normocephalic. Atraumatic. Patient has moist mucous membranes. NECK: Supple. Trachea midline CHEST/LUNGS: Clear to auscultation. There is no respiratory distress noted. HEART/CARDIOVASCULAR: Regular. There is no tachycardia. There is no gallop rub or murmur. ABDOMEN: Abdomen is soft, nontender. Patient has normal bowel sounds. There is no abdominal distention. SKIN: There is no rash. There is no edema. There is no diaphoresis. NEURO: The patient is postictal. Gag reflex present MUSCULOSKELETAL: There is no evidence of acute injury. ED Course - Reevaluation(s) Reevaluation #1: 05/27/19 21:02 Patient had a second seizure recalcitrant to a total of 4 mg of Ativan. Subsequently the decision to intubate using RSI was made for status epilepticus - Intubation Time Out Performed: Yes Sedative: Etomidate Mg Given: 20 Paralytic: Succinylcholine Mg Given: 100 Laryngoscope: Allyn Size: 3 ET Tube Size: 7 Tube Secured Depth (cm): 20 Tube Secured Location: lips Tube Placement Confirmation: visualized tube passing t, equal breath sounds bilat, no breath sounds over epi, confirmation by capnometr Patient Tolerated Procedure: well, no complications Intubation Complications: none ED Medical Decision Making - Lab Data Result diagrams: 05/27/19 21:02 05/27/19 21:02 Laboratory Tests 05/27/19 05/27/19 05/27/19 21:02 21:02 21:02 WBC 9.3 RBC 4.52 Hgb 13.1 Hct 40.1 MCV 89 MCH 29 MCHC 33 RDW 13.9 Plt Count 260 Lymph % (Auto) 36.4 H [place] % (Auto) 8.4 H Eos % (Auto) 2.4 Baso % (Auto) 1.1 Lymph # 3.4 [place] # 0.8 Eos # 0.2 Baso # 0.1 Seg Neutrophils % 51.7 Seg Neutrophils # 4.8 POC ABG pH POC ABG pCO2 POC ABG HCO3 POC ABG Total CO2 POC ABG O2 Sat POC ABG Base Excess FiO2 Sodium 142 Potassium 4.2 Chloride 105.7 Carbon Dioxide 25 Anion Gap 16 BUN 6 L Creatinine 0.5 L Estimated GFR > 60 BUN/Creatinine Ratio 12 Glucose 149 H Calcium 8.8 Magnesium 2.00 HCG, Qual Negative 05/27/19 22:06 WBC RBC Hgb Hct MCV MCH MCHC RDW Plt Count Lymph % (Auto) [place] % (Auto) Eos % (Auto) Baso % (Auto) Lymph # [place] # Eos # Baso # Seg Neutrophils % Seg Neutrophils # POC ABG pH 7.301 L POC ABG pCO2 47.6 H POC ABG HCO3 23.4 POC ABG Total CO2 25 POC ABG O2 Sat 100 POC ABG Base Excess -3 FiO2 100 Sodium Potassium Chloride Carbon Dioxide Anion Gap BUN Creatinine Estimated GFR BUN/Creatinine Ratio Glucose Calcium Magnesium HCG, Qual - EKG Data -: EKG Interpreted by Me EKG shows normal: sinus rhythm Rate: tachycardia (140 bpm) - EKG Data When compared to previous EKG there are: previous EKG unavailable Interpretation: nonspecific ST-T wave wu - Radiology Data Radiology results: report reviewed (chest x-ray, CT head), image reviewed (chest x-ray, CT head) interpreted by me: Chest x-ray-ET tube in appropriate position. No focal infiltrates, no pneumothorax [address] [address] XRay Report Signed Patient: YAYA CIFUENTES MR#: [id number] : 1975 Acct:[id number] Age/Sex: 44 / F ADM Date: 05/27/19 Loc: ED Attending Dr: Ordering Physician: KARINA VILLARREAL MD Date of Service: 05/27/19 Procedure(s): XR chest 1V ap Accession Number(s): [id number] cc: KARINA VILLARREAL MD Fluoro Time In Minutes: CHEST 1 VIEW 05/27/2019 9:44 PM INDICATION / CLINICAL INFORMATION: status post intubation. COMPARISON: None available. FINDINGS: SUPPORT DEVICES: Endotracheal tube has been placed with the tip 2.5 cm above the josué in expected position. Esophagogastric tube has been placed below the diaphragm into the stomach. HEART / MEDIASTINUM: Upper normal size and stable. LUNGS / PLEURA: Mild bibasilar densities may represent atelectasis. No acute airspace disease or significant pleural effusion. No pneumothorax. ADDITIONAL FINDINGS: No significant additional findings. IMPRESSION: 1. ET tube in expected position. Signer Name: Yaa Philip MD Signed: 05/27/2019 10:05 PM Workstation Name: [id number] Transcribed By: DT Dictated By: Rell Philip MD Electronically Authenticated By: Rell Philip MD Signed Date/Time: 05/27/192204 DD/ 03 TD/TT: [address] [address] Cat Scan Report Signed Patient: YAYA CIFUENTES MR#: [id number] : 1975 Acct:[id number] Age/Sex: 44 / F ADM Date: 05/27/19 Loc: ED Attending Dr: Ordering Physician: KARINA VILLARREAL MD Date of Service: 05/27/19 Procedure(s): CT head/brain wo con Accession Number(s): [id number] cc: KARINA VILLARREAL MD CT HEAD WITHOUT CONTRAST INDICATION : seizure, postictal. TECHNIQUE: Axial, coronal and sagittal CT imaging was performed from the skull apex through the skull base without contrast. All CT scans at this location are performed using CT dose reduction for ALARA by means of automated exposure control. COMPARISON: None available. FINDINGS: PARENCHYMA: No mass, midline shift, hemorrhage, extraaxial collection or acute territorial infarction. VENTRICLES: Symmetric and normal in size. SOFT TISSUES: Soft tissues including the orbits appear normal. BONES: No acute osseous abnormality. SINUSES: No significant abnormality. ADDITIONAL FINDINGS: None. IMPRESSION: No acute abnormality. Signer Name: Junior Avila MD Signed: 05/27/2019 11:07 PM Workstation Name: [id number] Transcribed By: [place] Dictated By: Junior Avila MD Electronically Authenticated By: Junior Avila MD Signed Date/Time: 05/27/192306 DD/ 05 TD/TT: - Differential Diagnosis epilepsy, postictal state, status epilepticus Critical Care Time: Yes Critical care time in (mins) excluding proc time.: 30 Critical care attestation.: If time is entered above; I have spent that time in minutes in the direct care of this critically ill patient, excluding procedure time. ED Disposition Clinical Impression: Status epilepticus Disposition: OP ADMIT IP TO THIS HOSP Is pt being admited?: Yes Does the pt Need Aspirin: No Condition: Stable Referrals: BERNICE FAGAN MD [Primary Care Provider] - 3-5 Days Time of Disposition: 23:19 (hospitalist paged (Dr. Amanda Brush))
[2019-05-27] MEDS ORDERED: ATIVAN IV ONE ×3 (20:45→21:06)
[2019-05-27] MEDS ORDERED: ATIVAN ONE ×4 (20:46→21:08)
[2019-05-27] MEDS ORDERED: NACL 0.9% 1000 ML 1,000 ML IV ONE (20:59)
[2019-05-27] MEDS ORDERED: ARTIFICIAL TEARS OPHTH OINT OU PRN (20:59)
[2019-05-27] MEDS ORDERED: VASELINE LIP THERAPY TP PRN (20:59)
[2019-05-27] MEDS ORDERED: MIDAZOLAM 100 MG in NACL 0.9% 80 ML IV SCH (21:00)
[2019-05-27] MEDS ORDERED: ZEMURON IV ONE ×2 (21:06→22:16)
[2019-05-27 21:36] LABS: BUN/Creatinine Ratio 12; Basophils % (Auto) 1.1 % (0.0-1.8); Blood Urea Nitrogen 6 mg/dL (7-17); Calcium 8.8 mg/dL (8.4-10.2); Eosinophils % (Auto) 2.4 % (0.0-4.3); Hematocrit 40.1 % (30.3-42.9); Hemoglobin 13.1 gm/dl (10.1-14.3); Hemolysis Index 31; Lymphocytes % (Auto) 36.4 % (13.4-35.0); Mean Corpuscular HGB Conc 33 % (30-34); Mean Corpuscular Volume 89 fl (79-97); Monocytes % (Auto) 8.4 % (0.0-7.3); Platelet Count 260 K/mm3 (140-440); Red Blood Count 4.52 M/mm3 (3.65-5.03); Red Cell Distribution Width 13.9 % (13.2-15.2)
[2019-05-27 21:37] LABS: Basophils # (Auto) 0.1 K/mm3 (0.0-0.1); Eosinophils # (Auto) 0.2 K/mm3 (0.0-0.4); Lymphocytes # (Auto) 3.4 K/mm3 (1.2-5.4); Monocytes # (Auto) 0.8 K/mm3 (0.0-0.8)
[2019-05-27] MEDS: VERSED IV PRN (22:00)
--- NOTE | 2019-05-27 22:09 | XRay Report ---
CHEST 1 VIEW 05/27/2019 9:44 PM INDICATION / CLINICAL INFORMATION: status post intubation. COMPARISON: None available. FINDINGS: SUPPORT DEVICES: Endotracheal tube has been placed with the tip 2.5 cm above the josué in expected p osition. Esophagogastric tube has been placed below the diaphragm into the stomach. HEART / MEDIASTINUM: Upper normal size and stable. LUNGS / PLEURA: Mild bibasilar densities may represent atelectasis. No acute airspace disease or sign ificant pleural effusion. No pneumothorax. ADDITIONAL FINDINGS: No significant additional findings. IMPRESSION: 1. ET tube in expected position. Signer Name: Yaa Philip MD Signed: 05/27/2019 10:05 PM Workstation Name: [id number]
[2019-05-27] MEDS ORDERED: HALDOL ONE (22:12)
[2019-05-27] MEDS ORDERED: HALDOL IM ONE (22:15)
--- NOTE | 2019-05-27 23:12 | Cat Scan Report ---
CT HEAD WITHOUT CONTRAST INDICATION : seizure, postictal. TECHNIQUE: Axial, coronal and sagittal CT imaging was performed from the skull apex through the skul l base without contrast. All CT scans at this location are performed using CT dose reduction for ALA RA by means of automated exposure control. COMPARISON: None available. FINDINGS: PARENCHYMA: No mass, midline shift, hemorrhage, extraaxial collection or acute territorial infarctio n. VENTRICLES: Symmetric and normal in size. SOFT TISSUES: Soft tissues including the orbits appear normal. BONES: No acute osseous abnormality. SINUSES: No significant abnormality. ADDITIONAL FINDINGS: None. IMPRESSION: No acute abnormality. Signer Name: Junior Avila MD Signed: 05/27/2019 11:07 PM Workstation Name: [id number]
[2019-05-27] MEDS ORDERED: TYLENOL PO PRN (23:39)
[2019-05-27] MEDS ORDERED: TYLENOL PR PRN (23:39)
[2019-05-27] MEDS ORDERED: SODIUM CHLORIDE FLUSH SYRINGE 10 ML IV PRN (23:39)
[2019-05-27] MEDS ORDERED: ZOFRAN IV PRN (23:39)
--- NOTE | 2019-05-27 23:41 | History and Physical Report ---
History of Present Illness Date of examination: 05/27/19 History of present illness: 44 -year-old woman with a history of seizure was brought to the emergency room by EMS for evaluation of seizure. She was given IV Ativan by EMS and rule out to the hospital. In the emergency room she had a not a seizure, not aborted w ith 4 mg of IV Ativan. She was subsequently intubated and started on a Versed drip, review of systems unobtainable PAST MEDICAL HISTORY:seizure PAST SURGICAL HISTORY:Unknown SOCIAL HISTORY: Unknown FAMILY HISTORY: Unknown Medications and Allergies Allergies Allergy/AdvReac Type Severity Reaction Status Date / Time No Known Allergies Allergy Unverified 02/23/18 05:03 Home Medications Medication Instructions Recorded Confirmed Last Taken Type Ciprofloxacin HCl [Ciloxan] 5 ml OP Q2H 02/23/18 02/23/18 Unknown History Sertraline [Zoloft] 200 mg PO QDAY 02/23/18 02/23/18 Unknown History OXcarbazepine [Trileptal] 300 mg PO BID #60 tablet 11/13/18 Unknown Rx levETIRAcetam [Keppra TAB] 750 mg PO BID #90 tablet 11/13/18 Unknown Rx Cyclobenzaprine [Flexeril] 10 mg PO TID PRN #20 tablet 12/10/18 Unknown Rx Naproxen [Naprosyn] 500 mg PO BID #14 tablet 12/10/18 Unknown Rx Active Meds: Active Medications Hydrophilic Ointment (Vaseline Lip Therapy) 1 applic TP Q2HR PRN PRN Reason: Dry Lips Midazolam HCl 100 mg/ Sodium (Chloride) 100 mls @ 2 mls/hr IV TITR OLENA; Protocol Last Titration: 05/27/19 22:00 Dose: 4 mg/hr, 4 mls/hr Documented by: Midazolam HCl (Versed) 2 mg IV Q10MIN PRN PRN Reason: Sedation Last Admin: 05/27/19 22:00 Dose: 2 mg Documented by: Multi-Ingred Cream/Lotion/Oil/Oint (Artificial Tears Ophth Oint) 1 applic OU Q4HR PRN PRN Reason: Dry Eye(s) Exam - Physical Exam Narrative exam: General Apperance: The patient lying in bed, breathing comfortable, intubated HEENT: Normocephalic, atraumatic. Pupils equally round and reactive to light, unable to do EOM, no sclericterus or JVD or thyromegaly or nodule. , no carotid bruit, mucous membranes moist, unable to examine oral cavity, ET tube in place Heart: S1-S2, regular is rhythm Lungs: Clear to auscultation bilaterally, breathing comfortable Abdomen: Positive bowel sounds, soft, nondistended, no organomegaly Extremities: No edema cyanosis clubbing Skin: no rash, nodule, warm and dry Neuro: Sedated - Constitutional Vitals: Temp Pulse Resp BP Pulse Ox 99 F 120 H 22 153/89 100 05/27/19 20:35 05/27/19 22:48 05/27/19 22:48 05/27/19 22:48 05/27/19 22:48 Results - Labs CBC & Chem 7: 05/27/19 21:02 05/27/19 21:02 Labs: Abnormal lab results 05/27/19 05/27/19 05/27/19 Range/Units 21:02 21:02 22:06 Lymph % (Auto) 36.4 H (13.4-35.0) % [place] % (Auto) 8.4 H (0.0-7.3) % POC ABG pH 7.301 L (7.35-7.45) POC ABG pCO2 47.6 H (35-45) BUN 6 L (7-17) mg/dL Creatinine 0.5 L (0.7-1.2) mg/dL Glucose 149 H (65-100) mg/dL - Imaging and Cardiology EKG: image reviewed Chest x-ray: report reviewed CT Scan - head: report reviewed Assessment and Plan Assessment Acute respiratory failure Status epilepticus Obesity Plan Admit to medicine Continue Versed drip, start IV fluid Start IV Keppra, consult neurology, critical care DVT prophylaxis
[2019-05-27] MEDS ORDERED: NACL 0.9% 1000 ML 1,000 ML IV SCH (23:45)
[2019-05-28] MEDS: VERSED IV PRN ×2 (00:10→01:45)
[2019-05-28] MEDS ORDERED: NACL 0.9% 1000 ML 1,000 ML ONE (00:29)
[2019-05-28] MEDS ORDERED: MORPHINE IV ONE (03:29)
[2019-05-28 04:39] LABS: Basophils # (Auto) 0.1 K/mm3 (0.0-0.1); Eosinophils % (Auto) 0.2 % (0.0-4.3); Hematocrit 34.9 % (30.3-42.9); Hemoglobin 11.3 gm/dl (10.1-14.3); Lymphocytes # (Auto) 1.1 K/mm3 (1.2-5.4); Lymphocytes % (Auto) 8.6 % (13.4-35.0); Mean Corpuscular HGB Conc 33 % (30-34); Mean Corpuscular Volume 88 fl (79-97); Monocytes # (Auto) 0.8 K/mm3 (0.0-0.8); Monocytes % (Auto) 6.6 % (0.0-7.3); Platelet Count 235 K/mm3 (140-440); Red Blood Count 3.96 M/mm3 (3.65-5.03); Red Cell Distribution Width 14.2 % (13.2-15.2)
[2019-05-28 05:12] LABS: BUN/Creatinine Ratio 10; Blood Urea Nitrogen 5 mg/dL (7-17); Calcium 8.1 mg/dL (8.4-10.2); Hemolysis Index 13
[2019-05-28] MEDS ORDERED: LOVENOX SUB-Q SCH (10:00)
[2019-05-28] MEDS: LOVENOX SUB-Q SCH (10:21)
[2019-05-28] MEDS: KEPPRA 1,000 MG in D5W 100 ML IV SCH ×2 (10:24→21:51)
--- NOTE | 2019-05-28 12:04 | Consultation ---
History of Present Illness Consult date: 05/28/19 Reason for Consult: seizure Chief complaint: i had a seizure History of present illness: pt w [facility] long standing epilepsy since childhood on oxcarbamaz, keppra , non compliant, 'i ran out of meds ' poor historian, admits to being in hosp in past for back to back sz when forgetting to take meds, poss. intubated in the past as well for sz status, pt arrives in sz status, intubated received rescue benzo and midaz, keppra, self extubated, no further sz no new focal brain complaints no CHOI fever or neck stiff no n.v.v no new n/t, or lat deficits pt doenst get warnings prior to sz last sz was within 2-3 mo ago, non compliance CT head reviewed, and NAICP groggy tired no new spine pain or rad. sx no change of vision or speech stable since this am stat eeg bedside, no status FH: neg for neuro dis SH: no t/a/d ALL: nka ROS : all other sys neg Medications and Allergies Allergies Allergy/AdvReac Type Severity Reaction Status Date / Time No Known Allergies Allergy Unverified 02/23/18 05:03 Home Medications Medication Instructions Recorded Confirmed Last Taken Type Sertraline [Zoloft] 200 mg PO QDAY 02/23/18 02/23/18 Unknown History OXcarbazepine [Trileptal] 300 mg PO BID #60 tablet 11/13/18 05/28/19 Unknown Rx levETIRAcetam [Keppra TAB] 750 mg PO BID #90 tablet 11/13/18 05/28/19 Unknown Rx Cyclobenzaprine [Flexeril] 10 mg PO TID PRN #20 tablet 12/10/18 Unknown Rx Naproxen [Naprosyn] 500 mg PO BID #14 tablet 12/10/18 Unknown Rx Active Meds: Active Medications Acetaminophen (Tylenol) 650 mg PO Q4H PRN PRN Reason: Pain MILD(1-3)/Fever >100.5/CHOI Acetaminophen (Tylenol) 650 mg GA Q4H PRN PRN Reason: Pain MILD(1-3)/Fever >100.5/CHOI Enoxaparin Sodium (Lovenox) 40 mg SUB-Q QDAY@1000 OLENA Last Admin: 05/28/19 10:21 Dose: 40 mg Documented by: Hydrophilic Ointment (Vaseline Lip Therapy) 1 applic TP Q2HR PRN PRN Reason: Dry Lips Midazolam HCl 100 mg/ Sodium (Chloride) 100 mls @ 2 mls/hr IV TITR OLENA; Protocol Last Titration: 05/28/19 07:10 Dose: 0 mg/hr, 0 mls/hr Documented by: Sodium Chloride (Nacl 0.9% 1000 Ml) 1,000 mls @ 125 mls/hr IV DIRECT OLENA Last Admin: 05/28/19 00:34 Dose: 125 mls/hr Documented by: Levetiracetam 1,000 mg/ (Dextrose) 110 mls @ 400 mls/hr IV Q12HR OLENA Last Admin: 05/28/19 10:24 Dose: 400 mls/hr Documented by: Midazolam HCl (Versed) 2 mg IV Q10MIN PRN PRN Reason: Sedation Last Admin: 05/28/19 01:45 Dose: 2 mg Documented by: Multi-Ingred Cream/Lotion/Oil/Oint (Artificial Tears Ophth Oint) 1 applic OU Q4HR PRN PRN Reason: Dry Eye(s) Ondansetron HCl (Zofran) 4 mg IV Q8H PRN PRN Reason: Nausea And Vomiting Sodium Chloride (Sodium Chloride Flush Syringe 10 Ml) 10 ml IV BID OLENA Sodium Chloride (Sodium Chloride Flush Syringe 10 Ml) 10 ml IV PRN PRN PRN Reason: LINE FLUSH Physical Examination - Vital Signs Vital Signs: Vital Signs Pulse Ox 98 05/27/19 20:34 - Constitutional General appearance: comfortable - Respiratory Respiratory: Present: chest non-tender - Cardiovascular Cardiovascular: Present: regular rate Extremities: Present: no peripheral edema bilatateraly - Gastrointestinal Gastrointestinal: Present: soft - Integumentary Integumentary: Present: normal - Neurologic Cranial nerve examination: PERRL, EOMI, VFF, V1/V2/V3 grossly intact, face symmetric, tongue midline, intact, intact shoulder shrug, intact gag reflex, intact cough reflex Speech examination: intact Sensorimotor examination: intact Detailed motor examination: full strength in all reid Motor examination - right side: 5/5: biceps, triceps, wrist flexion, wrist extension, mainspring winder and oiler, hip flexors, knee extensors, dorsiflexion, toe extension (EHL), plantarflexion Motor examination - left side: 5/5: biceps, triceps, wrist flexion, wrist extension, mainspring winder and oiler, hip flexors, knee extensors, dorsiflexion, toe extension (EHL), plantarflexion Detailed sensory examination: intact Reflexes: 2+: ankle, bicep, knee, tricep - Musculoskeletal Musculoskeletal: Present: no pain, normal range of motion - Psychiatric Psychiatric: Present: mood/affect appropriate - Additional Exam Additional Exam: aox 4 no aphasia or agnosia neck supple no cerebellar signs no extra movements Results - Laboratory Findings CBC and BMP: 05/28/19 04:11 05/28/19 04:11 Abnormal Lab Findings: Abnormal Labs 05/27/19 05/27/19 05/27/19 21:02 21:02 22:06 WBC Lymph % (Auto) 36.4 H [place] % (Auto) 8.4 H Lymph # Seg Neutrophils % Seg Neutrophils # POC ABG pH 7.301 L POC ABG pCO2 47.6 H POC ABG pO2 Chloride BUN 6 L Creatinine 0.5 L Glucose 149 H Calcium 05/28/19 05/28/19 05/28/19 04:05 04:11 04:11 WBC 12.6 H Lymph % (Auto) 8.6 L [place] % (Auto) Lymph # 1.1 L Seg Neutrophils % 83.6 H Seg Neutrophils # 10.5 H POC ABG pH 7.346 L POC ABG pCO2 POC ABG pO2 121 H Chloride 108.2 H BUN 5 L Creatinine 0.5 L Glucose 125 H Calcium 8.1 L Assessment and Plan status epilepticus , resolved, intubated benzo drip, self extubated, on keppra and oxcarb./TRILEPTAL epilepsy non compliant w meds no further sz this am EEG no status exam non focal, no CHOI or fever CT head neg. cont. keppra 750 bid and oxcarb./TRILEPTAL 300 bid dosing as per home meds sz precautions education provided on the importance of med compliance no driving and other sz precautions, pt acknowledged understanding cont current care
--- NOTE | 2019-05-28 12:37 | Consultation ---
History of Present Illness Consult date: 05/28/19 Requesting physician: ALANA TAVARES Reason for consult: other (Status Epilepticus; Acute Respiratory Failure) History of present illness: PULMONARY/CCM CONSULT NOTE (Full dictation # ) Please see dictated notes for full details Medications and Allergies Allergies Allergy/AdvReac Type Severity Reaction Status Date / Time No Known Allergies Allergy Unverified 02/23/18 05:03 Home Medications Medication Instructions Recorded Confirmed Last Taken Type Sertraline [Zoloft] 200 mg PO QDAY 02/23/18 02/23/18 Unknown History OXcarbazepine [Trileptal] 300 mg PO BID #60 tablet 11/13/18 05/28/19 Unknown Rx levETIRAcetam [Keppra TAB] 750 mg PO BID #90 tablet 11/13/18 05/28/19 Unknown Rx Cyclobenzaprine [Flexeril] 10 mg PO TID PRN #20 tablet 12/10/18 Unknown Rx Naproxen [Naprosyn] 500 mg PO BID #14 tablet 12/10/18 Unknown Rx Active Meds: Active Medications Acetaminophen (Tylenol) 650 mg PO Q4H PRN PRN Reason: Pain MILD(1-3)/Fever >100.5/CHOI Acetaminophen (Tylenol) 650 mg SD Q4H PRN PRN Reason: Pain MILD(1-3)/Fever >100.5/CHOI Enoxaparin Sodium (Lovenox) 40 mg SUB-Q QDAY@1000 OLENA Last Admin: 05/28/19 10:21 Dose: 40 mg Documented by: Hydrophilic Ointment (Vaseline Lip Therapy) 1 applic TP Q2HR PRN PRN Reason: Dry Lips Midazolam HCl 100 mg/ Sodium (Chloride) 100 mls @ 2 mls/hr IV TITR OLENA; Protocol Last Titration: 05/28/19 07:10 Dose: 0 mg/hr, 0 mls/hr Documented by: Sodium Chloride (Nacl 0.9% 1000 Ml) 1,000 mls @ 125 mls/hr IV DIRECT OLENA Last Admin: 05/28/19 00:34 Dose: 125 mls/hr Documented by: Levetiracetam 1,000 mg/ (Dextrose) 110 mls @ 400 mls/hr IV Q12HR OLENA Last Admin: 05/28/19 10:24 Dose: 400 mls/hr Documented by: Midazolam HCl (Versed) 2 mg IV Q10MIN PRN PRN Reason: Sedation Last Admin: 05/28/19 01:45 Dose: 2 mg Documented by: Multi-Ingred Cream/Lotion/Oil/Oint (Artificial Tears Ophth Oint) 1 applic OU Q4HR PRN PRN Reason: Dry Eye(s) Ondansetron HCl (Zofran) 4 mg IV Q8H PRN PRN Reason: Nausea And Vomiting Sodium Chloride (Sodium Chloride Flush Syringe 10 Ml) 10 ml IV BID OLENA Sodium Chloride (Sodium Chloride Flush Syringe 10 Ml) 10 ml IV PRN PRN PRN Reason: LINE FLUSH Physical Examination Vital signs: Vital Signs Pulse Ox 98 05/27/19 20:34 Results - Laboratory Findings CBC and BMP: 05/28/19 04:11 05/28/19 04:11 ABG POC ABG pH 7.346 (7.35-7.45) L 05/28/19 04:05 POC ABG pCO2 44.0 (35-45) 05/28/19 04:05 POC ABG pO2 121 (80-105) H 05/28/19 04:05 POC ABG HCO3 24.1 (22-26 mml/L) 05/28/19 04:05 POC ABG Total CO2 25 (23-27mmol/L) 05/28/19 04:05 POC ABG O2 Sat 98 05/28/19 04:05 Abnormal lab findings: Abnormal Labs 05/27/19 05/27/19 05/27/19 21:02 21:02 22:06 WBC Lymph % (Auto) 36.4 H [place] % (Auto) 8.4 H Lymph # Seg Neutrophils % Seg Neutrophils # POC ABG pH 7.301 L POC ABG pCO2 47.6 H POC ABG pO2 Chloride BUN 6 L Creatinine 0.5 L Glucose 149 H Calcium 05/28/19 05/28/19 05/28/19 04:05 04:11 04:11 WBC 12.6 H Lymph % (Auto) 8.6 L [place] % (Auto) Lymph # 1.1 L Seg Neutrophils % 83.6 H Seg Neutrophils # 10.5 H POC ABG pH 7.346 L POC ABG pCO2 POC ABG pO2 121 H Chloride 108.2 H BUN 5 L Creatinine 0.5 L Glucose 125 H Calcium 8.1 L
--- NOTE | 2019-05-28 13:40 | Progress Note ---
Assessment and Plan Assessment and plan: Status epilepticus Resolved. Neurology following. Cont. keppra 750 bid and oxcarb./TRILEPTAL 300 bid dosing as per home meds sz precautions Medical noncompliance. Education provided on the importance of med compliance no driving and other sz precautions, pt acknowledged understanding Disposition. Patient will transfer to the floor. History Interval history: 44-year-old female with long history of epilepsy who ran out of her medications presented with status epilepticus requiring intubation. Patient later self extubated and doing well. Hospitalist Physical - Constitutional Vitals: Temp Pulse Resp BP Pulse Ox 98.3 F 99 H 17 115/62 100 05/28/19 12:00 05/28/19 08:21 05/28/19 08:21 05/28/19 08:21 05/28/19 08:00 General appearance: Present: no acute distress, well-nourished - EENT Eyes: Present: PERRL, EOM intact ENT: hearing intact, clear oral mucosa, dentition normal - Neck Neck: Present: supple, normal ROM - Respiratory Respiratory effort: normal Respiratory: bilateral: CTA - Cardiovascular Rhythm: regular Heart Sounds: Present: S1 & S2. Absent: gallop, rub - Extremities Extremities: no ischemia, No edema, Full ROM - Abdominal General gastrointestinal: soft, non-tender, non-distended, normal bowel sounds - Integumentary Integumentary: Present: clear, warm, dry - Neurologic Neurologic: CNII-XII intact, moves all extremities Results - Labs CBC & Chem 7: 05/28/19 04:11 05/28/19 04:11 Labs: Laboratory Last Values WBC 12.6 K/mm3 (4.5-11.0) H 05/28/19 04:11 RBC 3.96 M/mm3 (3.65-5.03) 05/28/19 04:11 Hgb 11.3 gm/dl (10.1-14.3) 05/28/19 04:11 Hct 34.9 % (30.3-42.9) 05/28/19 04:11 MCV 88 fl (79-97) 05/28/19 04:11 MCH 29 pg (28-32) 05/28/19 04:11 MCHC 33 % (30-34) 05/28/19 04:11 RDW 14.2 % (13.2-15.2) 05/28/19 04:11 Plt Count 235 K/mm3 (140-440) 05/28/19 04:11 Lymph % (Auto) 8.6 % (13.4-35.0) L 05/28/19 04:11 [place] % (Auto) 6.6 % (0.0-7.3) 05/28/19 04:11 Eos % (Auto) 0.2 % (0.0-4.3) 05/28/19 04:11 Baso % (Auto) 1.0 % (0.0-1.8) 05/28/19 04:11 Lymph # 1.1 K/mm3 (1.2-5.4) L 05/28/19 04:11 [place] # 0.8 K/mm3 (0.0-0.8) 05/28/19 04:11 Eos # 0.0 K/mm3 (0.0-0.4) 05/28/19 04:11 Baso # 0.1 K/mm3 (0.0-0.1) 05/28/19 04:11 Seg Neutrophils % 83.6 % (40.0-70.0) H 05/28/19 04:11 Seg Neutrophils # 10.5 K/mm3 (1.8-7.7) H 05/28/19 04:11 POC ABG pH 7.346 (7.35-7.45) L 05/28/19 04:05 POC ABG pCO2 44.0 (35-45) 05/28/19 04:05 POC ABG pO2 121 (80-105) H 05/28/19 04:05 POC ABG HCO3 24.1 (22-26 mml/L) 05/28/19 04:05 POC ABG Total CO2 25 (23-27mmol/L) 05/28/19 04:05 POC ABG O2 Sat 98 05/28/19 04:05 POC ABG Base Excess -2 ((-2) - (+3)mmol/L) 05/28/19 04:05 35 % 05/28/19 04:05 Sodium 143 mmol/L (137-145) 05/28/19 04:11 Potassium 3.9 mmol/L (3.6-5.0) 05/28/19 04:11 Chloride 108.2 mmol/L (98-107) H 05/28/19 04:11 Carbon Dioxide 24 mmol/L (22-30) 05/28/19 04:11 15 mmol/L 05/28/19 04:11 BUN 5 mg/dL (7-17) L 05/28/19 04:11 0.5 mg/dL (0.7-1.2) L 05/28/19 04:11 Estimated GFR > 60 ml/min 05/28/19 04:11 10 % 05/28/19 04:11 Glucose 125 mg/dL (65-100) H 05/28/19 04:11 Calcium 8.1 mg/dL (8.4-10.2) L 05/28/19 04:11 Magnesium 2.00 mg/dL (1.7-2.3) 05/27/19 21:02 HCG, Qual Negative (Negative) 05/27/19 21:02 Active Medications - Current Medications Current Medications: Generic Name Dose Route Start Last Admin Trade Name Freq PRN Reason Stop Dose Admin Acetaminophen 650 mg 05/27/19 23:39 Tylenol PO Q4H PRN Pain MILD(1-3)/Fever >100.5/CHOI Acetaminophen 650 mg 05/27/19 23:39 Tylenol GA Q4H PRN Pain MILD(1-3)/Fever >100.5/CHOI Enoxaparin Sodium 40 mg 05/28/19 10:00 05/28/19 10:21 Lovenox SUB-Q 40 mg QDAY@1000 OLENA Administration Hydrophilic Ointment 1 applic 05/27/19 20:59 Vaseline Lip Therapy TP Q2HR PRN Dry Lips Midazolam HCl 100 mg/ Sodium 100 mls @ 2 mls/hr 05/27/19 21:00 05/28/19 07:10 Chloride IV 0 mg/hr TITR OLENA 0 mls/hr Titration Protocol 2 MG/HR Sodium Chloride 1,000 mls @ 125 mls/hr 05/27/19 23:45 05/28/19 00:34 Nacl 0.9% 1000 Ml IV 125 mls/hr DIRECT OLENA Administration Levetiracetam 1,000 mg/ 110 mls @ 400 mls/hr 05/28/19 10:00 05/28/19 10:24 Dextrose IV 400 mls/hr Q12HR OLENA Administration Midazolam HCl 2 mg 05/27/19 20:59 05/28/19 01:45 Versed IV 2 mg Q10MIN PRN Administration Sedation Multi-Ingred Cream/Lotion/Oil/Oint 1 applic 05/27/19 20:59 Artificial Tears Ophth Oint OU Q4HR PRN Dry Eye(s) Ondansetron HCl 4 mg 05/27/19 23:39 Zofran IV Q8H PRN Nausea And Vomiting Sodium Chloride 10 ml 05/28/19 10:00 Sodium Chloride Flush Syringe 10 Ml IV BID OLENA Sodium Chloride 10 ml 05/27/19 23:39 Sodium Chloride Flush Syringe 10 Ml IV PRN PRN LINE FLUSH
[2019-05-28] MEDS ORDERED: AMIDATE IV ONE (20:54)
[2019-05-28] MEDS ORDERED: QUELICIN ONE (20:54)
[2019-05-28] MEDS ORDERED: ZEMURON IV ONE ×2 (20:54)
[2019-05-28] MEDS: SODIUM CHLORIDE FLUSH SYRINGE 10 ML IV SCH (21:52)
--- NOTE | 2019-05-29 09:01 | Discharge Summary ---
Providers - Providers Date of Admission: 05/27/19 23:39 Date of discharge: 05/29/19 Attending physician: SUYAPA MONTALVO 05/27/19 21:00 Consult to Dietitian/Nutrition [CONS] Routine Physician Instructions: Reason For Exam: Reason for Consult: Evaluate nutritional intake 05/27/19 23:39 Consult to Physician [CONS] Routine Comment: Consulting Provider: SOFY FRANCE Physician Instructions: Reason For Exam: cc 05/27/19 23:54 Consult to Physician [CONS] Routine Comment: Consulting Provider: CHRISTIAN VILLAVICENCIO Physician Instructions: Reason For Exam: monse [facility] Reason for admission: monse d/o Condition: Stable Hospital course: 44-year-old female with long history of epilepsy who ran out of her medications presented with status epilepticus requiring intubation. The patient was initially treated with benzodiazepine drip. However, shortly after admission, patient self extubated and was not reintubated. Pulmonary saw the patient in consultation and felt the respiratory status was stable. The patient was seen by neurology in consultation as well. Etiology of seizure was related to medical noncompliance. EEG did not reveal status epilepticus. The patient's exam was nonfocal. No evidence of any infectious etiology and CT of the head was negative. Neurology recommended increasing Keppra 750 mg twice a day and continue home dose of Trileptal twice a day. Patient had no further seizure activity and is felt to have received maximal hospital benefit for discharge. Dedicated discharge time 32 minutes. Disposition: - TO HOME OR SELFCARE Time spent for discharge: 32 - Discharge Diagnoses (1) Medical non-compliance Status: Acute (2) Status epilepticus Status: Acute (3) Acute respiratory failure with hypoxia Status: Acute Core Measure Documentation - Palliative Care Palliative Care/ Comfort Measures: Not Applicable - Core Measures Any of the following diagnoses?: none Exam - Constitutional Vitals: Temp Pulse Resp BP Pulse Ox 97.0 F L 86 18 105/55 99 05/28/19 23:52 05/28/19 23:52 05/28/19 23:52 05/28/19 23:52 05/28/19 23:52 General appearance: Present: no acute distress, well-nourished - EENT Eyes: Present: PERRL ENT: hearing intact, clear oral mucosa - Neck Neck: Present: supple, normal ROM - Respiratory Respiratory effort: normal Respiratory: bilateral: CTA - Cardiovascular Heart Sounds: Present: S1 & S2. Absent: rub, click - Extremities Extremities: pulses symmetrical, No edema Peripheral Pulses: within normal limits - Abdominal General gastrointestinal: Present: soft, non-tender, non-distended, normal bowel sounds Female genitourinary: Present: normal - Integumentary Integumentary: Present: clear, warm, dry - Musculoskeletal Musculoskeletal: gait normal, strength equal bilaterally - Psychiatric Psychiatric: appropriate mood/affect, intact judgment & insight - Neurologic Neurologic: CNII-XII intact, moves all extremities Plan Activity: advance as tolerated, no driving until cleared by PCP (no driving until cleared by neurology) Weight Bearing Status: Weight Bear as Tolerated Diet: regular Follow up with: BERNICE FAGAN MD [Primary Care Provider] - 3-5 Days Prescriptions: OXcarbazepine [Trileptal] 300 mg PO BID #60 tablet
[2019-05-29] MEDS ORDERED: TRILEPTAL PO SCH (10:00)
[2019-05-29] MEDS: KEPPRA 1,000 MG in D5W 100 ML IV SCH (10:38)
[2019-05-29] MEDS: LOVENOX SUB-Q SCH (10:38)
[2019-05-29] MEDS: SODIUM CHLORIDE FLUSH SYRINGE 10 ML IV SCH (10:43)
[2019-05-29 11:00] VITALS: BP 128/81
== END 2019-05-29 12:24 | disposition home or self-care (01) | DRG 208 ==
LOC: ED 20:24 → CC1 23:39 → 3A 05-28 15:26
PROVIDERS: ADMIT Internal Medicine; ATTEND Hospitalist
PROC: 5A1935Z Respiratory Ventilation, Less than 24 Consecutive Hours (ICD-10-PCS; principal; 2019-05-27)
PROC: 0BH17EZ Insertion of Endotracheal Airway into Trachea, Via Natural or Artificial Opening (ICD-10-PCS; 2019-05-27)
PROC: 4A033R1 Measurement of Arterial Saturation, Peripheral, Percutaneous Approach (ICD-10-PCS; 2019-05-28)
DX: J96.00 Acute respiratory failure, unspecified whether with hypoxia or hypercapnia (principal); G40.901 Epilepsy, unspecified, not intractable, with status epilepticus; E66.9 Obesity, unspecified; Z68.43 Body mass index [BMI] 50.0-59.9, adult; Z91.19 Patient's noncompliance with other medical treatment and regimen
CPT/HCPCS: 36415; 36600; 70450; 71045; 80048; 82803; 83735; 84703; 85025; 87070; 87205; 93005; 93010; 95819; G0378; J0330; J1630; J1650; J1953; J2060; J2250; J7030

== ENCOUNTER 2020-01-20 00:11 | Inpatient (IN) | payer MEDICAID ==
[2020-01-20] MEDS ORDERED: MIDAZOLAM 5 MG/5 ML INJ MDV IV ONE ×2 (00:27→00:55)
[2020-01-20] MEDS ORDERED: LIP THERAPY VASELINE TP PRN (00:27)
[2020-01-20] MEDS ORDERED: MINERAL OIL/PETROLATUM, WHITE OPHTH OINT 3.5 GM OU PRN (00:27)
[2020-01-20] MEDS ORDERED: SODIUM CHLORIDE 0.9% 1000 ML 1,000 ML IV ONE (00:29)
[2020-01-20] MEDS ORDERED: levETIRAcetam 1000 MG/NS 0.75% 1,000 MG/100 ML BAG IV ONE (00:29)
--- NOTE | 2020-01-20 00:30 | Emergency Department Report ---
ED Seizure HPI - General Stated Complaint: SEIZURE Time Seen by Provider: 01/20/20 00:11 Source: EMS Mode of arrival: Stretcher Limitations: Altered Mental Status - History of Present Illness Initial Comments: Patient is a 44-year-old female with a known history of seizures that presents emergency room with status epilepticus. Patient was brought in by EMS. Report received from EMS. EMS states that the call came out as active seizure. Patient was given 5 mg of Versed by EMS for a active seizure they witnessed. Patient was then began to seize again and patient was given 2 mg of Ativan. Patient in the ER at this time is continuing to shake and has shallow respirations and gurgling respirations. MD Complaint: seizure -: Sudden Description of Episode: loss of consciousness, tonic-clonic movement Witnessed:: Yes Trauma: No Seizure History: known seizure disorder, compliant with medication Place: home Treatments Prior to Arrival: benzodiazepines, airway maneuvers, suction - Related Data Previous Rx's Medication Instructions Recorded Last Taken Type OXcarbazepine [Trileptal] 300 mg PO BID #60 tablet 05/29/19 Unknown Rx levETIRAcetam [Keppra TAB] 750 mg PO BID #60 tablet 05/29/19 Unknown Rx Allergies Allergy/AdvReac Type Severity Reaction Status Date / Time No Known Allergies Allergy Unverified 02/23/18 05:03 ED Review of Systems ROS: Stated complaint: SEIZURE Other details as noted in HPI Comment: Unobtainable due to pts medical conditions ED Past Medical Hx - Past Medical History Previous Medical History?: Yes Hx Seizures: Yes - Surgical History Past Surgical History?: No - Family History Family history: no significant - Social History Smoking Status: Never Smoker Substance Use Type: None - Medications Home Medications: Home Medications Medication Instructions Recorded Confirmed Last Taken Type OXcarbazepine [Trileptal] 300 mg PO BID #60 tablet 05/29/19 Unknown Rx levETIRAcetam [Keppra TAB] 750 mg PO BID #60 tablet 05/29/19 Unknown Rx ED Physical Exam - General Limitations: Altered Mental Status, Physical Limitation General appearance: obtunded, obese, other - Head Head exam: Present: atraumatic, normocephalic - Eye Eye exam: Present: normal appearance, PERRL Pupils: Present: normal accommodation - ENT ENT exam: Present: mucous membranes dry - Neck Neck exam: Present: normal inspection - Respiratory Respiratory exam: Present: respiratory distress, decreased breath sounds - Cardiovascular Cardiovascular Exam: Present: regular rate, normal rhythm. Absent: systolic murmur, diastolic murmur, rubs, gallop - GI/Abdominal GI/Abdominal exam: Present: soft, normal bowel sounds. Absent: distended, tende rness, guarding - Rectal Rectal exam: Present: deferred - Extremities Exam Extremities exam: Present: normal inspection - Neurological Exam Neurological exam: Present: altered - Skin Skin exam: Present: warm, dry, intact, normal color. Absent: rash ED Course Vital Signs 01/20/20 01/20/20 01/20/20 00:32 00:46 00:50 Pulse Rate 144 H 127 H 111 H Respiratory 33 H 20 30 H Rate Blood Pressure 162/103 134/88 Blood Pressure [Left] O2 Sat by Pulse 98 98 Oximetry 01/20/20 01/20/20 01/20/20 00:56 01:00 01:16 Pulse Rate 137 H 117 H 115 H Respiratory 20 23 21 Rate Blood Pressure 131/93 129/94 Blood Pressure 146/93 [Left] O2 Sat by Pulse 98 97 98 Oximetry 01/20/20 01/20/20 01/20/20 02:04 02:16 02:30 Pulse Rate Respiratory Rate Blood Pressure 141/93 124/72 124/72 Blood Pressure [Left] O2 Sat by Pulse 95 99 100 Oximetry 01/20/20 01/20/20 01/20/20 02:46 03:00 03:16 Pulse Rate 108 H 99 H Respiratory 17 20 Rate Blood Pressure 124/72 131/72 131/72 Blood Pressure [Left] O2 Sat by Pulse 100 100 100 Oximetry 01/20/20 01/20/20 01/20/20 03:30 03:46 04:00 Pulse Rate 98 H 87 80 Respiratory 8 L 20 20 Rate Blood Pressure 131/72 131/72 131/72 Blood Pressure [Left] O2 Sat by Pulse 99 100 100 Oximetry - Reevaluation(s) Reevaluation #1: Initial patient evaluation done. Patient noted to be in status epilepticus and has already had 5 mg of Versed and 2 mg of Ativan. Patient has gurgling res pirations. At this time I will moved intubation to protect the patient's airway and continue to give medications to cause seizure termination. See procedure note for intubation. Patient will be placed on a Versed drip. 01/20/20 00:11 Reevaluation #2: Patient not shaking. Patient strips have been ordered. 01/20/20 00:47 Reevaluation #3: Seizure activity has terminated. Patient currently on Versed drip and patient required more sedation and was placed on a fentanyl drip. 01/20/20 02:47 - Consultations Consultation #1: Hospitalist consulted for admission. Hospitalist to admit patient. Bridge orders placed. 01/20/20 02:57 - Intubation Time Out Performed: Yes Sedative: Versed Paralytic: Succinylcholine Laryngoscope: fiberoptic video scope Size: 4 Assist Device Used: fiberoptic device ET Tube Size: 7.5 Tube Secured Depth (cm): 22 Tube Secured Location: teeth Tube Placement Confirmation: visualized tube passing t, equal breath sounds bilat, no breath sounds over epi, confirmation by capnometr Patient Tolerated Procedure: well, no complications Intubation Complications: none ED Medical Decision Making - Lab Data Result diagrams: 01/20/20 00:57 01/20/20 00:57 - EKG Data -: EKG Interpreted by Me EKG shows normal: sinus rhythm, axis, intervals, QRS complexes, ST-T waves Rate: tachycardia - Radiology Data Radiology results: report reviewed, image reviewed interpreted by me: CHEST 1 VIEW INDICATION: ET TUBE PLACEMENT. COMPARISON: Earlier the same day FINDINGS: SUPPORT DEVICES: Endotracheal tube is been repositioned and is 3 cm above the josué. HEART / MEDIASTINUM: No significant abnormality. LUNGS / PLEURA: No significant pulmonary or pleural abnormality. No pneumothorax. ADDITIONAL FINDINGS: IMPRESSION: 1. No acute cardiopulmonary disease CT HEAD WITHOUT CONTRAST HISTORY: Seizure, Pt is on a vent and aggitated. BEST IMAGES POSSIBLE!!! COMPARISON: 05/27/2019 TECHNIQUE: CT imaging of the head was performed in the axial, sagittal, and coronal projections and bone algorithm in axial projection in the soft tissue algorithm. All CT scans at this location are performed using CT dose reduction for ALARA by means of automated exposure control. CONTRAST: None. FINDINGS: Cerebral and Cerebellar Hemispheres: No evidence of mass or mass effect. No midline shift. No acute hemorrhage. No acute cortical infarction. No extra-axial fluid collection. Ventricles: Normal in size and configuration for age. Osseous Structures: No significant abnormality. Visualized Paranasal Sinuses: No significant abnormality. Additional Findings: None IMPRESSION: 1. No acute intracranial abnormality. CHEST 1 VIEW INDICATION: ETT placement. COMPARISON: 05/27/2019 FINDINGS: SUPPORT DEVICES: Endotracheal tube is at the josué. HEART / MEDIASTINUM: No significant abnormality. LUNGS / PLEURA: No significant pulmonary or pleural abnormality. No pneumothorax. ADDITIONAL FINDINGS: IMPRESSION: 1. No acute cardiopulmonary disease 2. Place recommend repositioning of the endotracheal tube - Medical Decision Making Patient is a 44-year-old female that presents to the emergency room for status epilepticus and seizure. Patient continued to have seizure in the ER even after being given 5 mg of Versed and 2 mg of Ativan. Patient also had snoring respirations and gurgling sounds. In order to protect the patient's airway and give the patient more definitive medications to control her seizures, the patient was intubated. Patient intubated without difficulty. See procedure note. Patient then placed on a Versed drip and a fentanyl drip. Patient did not show any further seizure activity after intubation. Patient had multiple labs done and labs were essentially unremarkable. Patient had a CT of the head for the status and the patient CT of the head was negative for acute findings. Patient's initial chest x-ray was done and it showed that the ET tube was deep and the ET tube was immediately repositioned. Patient then had a repeat x-ray and it showed good positioning of the ET tube. No acute findings on chest x- rays. Patient admitted to the hospitalist service and into the ICU. Patient had critical care time documented due to her clinical scenario and multiple re-evaluations. Patient critical care time is 80 minutes. - Differential Diagnosis Status epilepticus, respiratory failure, Critical Care Time: Yes Critical care time in (mins) excluding proc time.: 80 Critical care attestation.: If time is entered above; I have spent that time in minutes in the direct care of this critically ill patient, excluding procedure time. Critical Care Time: 80 MINUTES ED Disposition Clinical Impression: Status epilepticus Acute respiratory failure Qualifiers: Respiratory failure complication: unspecified whether with hypoxia or hypercapnia Qualified Code(s): J96.00 - Acute respiratory failure, unspecified whether with hypoxia or hypercapnia Disposition: OP ADMIT IP TO THIS HOSP Is pt being admited?: Yes Does the pt Need Aspirin: No Condition: Critical Time of Disposition: 02:56
[2020-01-20] MEDS ORDERED: ONDANSETRON 4 MG/2 ML INJ IV ONE (00:41)
[2020-01-20] MEDS: MIDAZOLAM 2 MG/2 ML INJ IV PRN ×2 (00:58→03:14)
[2020-01-20] MEDS ORDERED: MIDAZOLAM 100 MG in SODIUM CHLORIDE 0.9% 80 ML IV SCH (01:00)
--- NOTE | 2020-01-20 01:04 | XRay Report ---
CHEST 1 VIEW INDICATION: ETT placement. COMPARISON: 05/27/2019 FINDINGS: SUPPORT DEVICES: Endotracheal tube is at the josué. HEART / MEDIASTINUM: No significant abnormality. LUNGS / PLEURA: No significant pulmonary or pleural abnormality. No pneumothorax. ADDITIONAL FINDINGS: IMPRESSION: 1. No acute cardiopulmonary disease 2. Place recommend repositioning of the endotracheal tube Clinical service was notified of these findings personally by Dr. Reed Signer Name: Daneil Reed MD Signed: 01/20/2020 1:00 AM Workstation Name: [id number]
[2020-01-20 01:21] LABS: Basophils # (Auto) 0.1 K/mm3 (0.0-0.1); Basophils % (Auto) 1.1 % (0.0-1.8); Eosinophils # (Auto) 0.4 K/mm3 (0.0-0.4); Eosinophils % (Auto) 3.4 % (0.0-4.3); Hematocrit 37.7 % (30.3-42.9); Lymphocytes % (Auto) 36.2 % (13.4-35.0); Mean Corpuscular HGB Conc 32 % (30-34); Mean Corpuscular Volume 89 fl (79-97); Monocytes % (Auto) 8.8 % (0.0-7.3); Platelet Count 271 K/mm3 (140-440); Red Blood Count 4.23 M/mm3 (3.65-5.03); Red Cell Distribution Width 13.8 % (13.2-15.2)
--- NOTE | 2020-01-20 01:36 | XRay Report ---
CHEST 1 VIEW INDICATION: ET TUBE PLACEMENT. COMPARISON: Earlier the same day FINDINGS: SUPPORT DEVICES: Endotracheal tube is been repositioned and is 3 cm above the josué. HEART / MEDIASTINUM: No significant abnormality. LUNGS / PLEURA: No significant pulmonary or pleural abnormality. No pneumothorax. ADDITIONAL FINDINGS: IMPRESSION: 1. No acute cardiopulmonary disease Signer Name: Daniel Reed MD Signed: 01/20/2020 1:32 AM Workstation Name: [id number]
[2020-01-20 01:38] LABS: Alanine Aminotransferase 11 units/L (7-56); BUN/Creatinine Ratio 26; Blood Urea Nitrogen 13 mg/dL (7-17); Hemolysis Index 46
[2020-01-20] MEDS ORDERED: fentaNYL 100 MCG/2 ML INJ IV PRN (02:14)
--- NOTE | 2020-01-20 02:30 | Cat Scan Report ---
CT HEAD WITHOUT CONTRAST HISTORY: Seizure, Pt is on a vent and aggitated. BEST IMAGES POSSIBLE!!! COMPARISON: 05/27/2019 TECHNIQUE: CT imaging of the head was performed in the axial, sagittal, and coronal projections and bone algori thm in axial projection in the soft tissue algorithm. All CT scans at this location are performed using CT dose reduction for ALARA by means of automated e xposure control. CONTRAST: None. FINDINGS: Cerebral and Cerebellar Hemispheres: No evidence of mass or mass effect. No midline shift. No acute hemorrhage. No acute cortical infarction. No extra-axial fluid collection. Ventricles: Normal in size and configuration for age. Osseous Structures: No significant abnormality. Visualized Paranasal Sinuses: No significant abnormality. Additional Findings: None IMPRESSION: 1. No acute intracranial abnormality. NOTE: Acute infarct may not be visible by noncontrast CT. Signer Name: Daniel Reed MD Signed: 01/20/2020 2:26 AM Workstation Name: [id number]
[2020-01-20] MEDS ORDERED: fentaNYL DRIP Premix 2,000 MCG/100 ML BAG IV SCH (03:00)
[2020-01-20 03:23] LABS: ABG Base Excess -2.2 mmol/L (-2.0-3.0); ABG HCO3 22.8 mmol/L (20.0-26.0); ABG Methemoglobin 0.5 % (0.0-1.5); ABG Oxygen Saturation 97.4 % (95.0-99.0); ABG PCO2 39.8 mm Hg; ABG PH 7.376 pH Units (7.350-7.450); ABG PO2 96.9 mm Hg (80.0-90.0)
[2020-01-20] MEDS ORDERED: MIDAZOLAM 5 MG/5 ML INJ MDV IV NR (04:00)
[2020-01-20 04:08] LABS: Bilirubin,Urine NEG (Negative); Blood,Urine MOD (Negative); Color,Urine Yellow (Yellow); Mucus,Urine FEW /HPF; WBC,Urine < 1.0 /HPF (0.0-6.0)
[2020-01-20 04:13] LABS: Amphetamine Screen,Urine PRESUMPTIVE NEGATIVE; Cannabinoid Screen,Urine PRESUMPTIVE NEGATIVE; Cocaine Screen,Urine PRESUMPTIVE NEGATIVE; Methadone Screen,Urine PRESUMPTIVE NEGATIVE; Opiate Screen,Urine PRESUMPTIVE NEGATIVE
[2020-01-20] MEDS ORDERED: ONDANSETRON 4 MG/2 ML INJ IV PRN (04:19)
[2020-01-20] MEDS ORDERED: MORPHINE 2 MG/1 ML INJ IV PRN (04:19)
--- NOTE | 2020-01-20 04:28 | History and Physical Report ---
History of Present Illness Date of examination: 01/20/20 Date of admission: 01/20/2020 Chief complaint: Seizure Disorder. History of present illness: 44-year-old female with a known history of seizure disorder presenting to the emergency room today with seizure activity. She has been compliant with her medications but has had multiple seizures today. She also has seizures while in the emergency room and was subsequently intubated and sedated for airway protection. There has been no history of chest pain or shortness of breath, no fever or chills. Family members not available to give any history. Past History Past Medical History: seizures Past Surgical History: No surgical history Social history: no significant social history Family history: no significant family history Medications and Allergies Allergies Allergy/AdvReac Type Severity Reaction Status Date / Time No Known Allergies Allergy Unverified 02/23/18 05:03 Home Medications Medication Instructions Recorded Confirmed Last Taken Type OXcarbazepine [Trileptal] 300 mg PO BID #60 tablet 05/29/19 Unknown Rx levETIRAcetam [Keppra TAB] 750 mg PO BID #60 tablet 05/29/19 Unknown Rx Active Meds: Active Medications Fentanyl (Sublimaze) 50 mcg IV Q10MIN PRN PRN Reason: ANALGESIA Hydrophilic Ointment (Vaseline Lip Therapy) 1 applic TP Q2HR PRN PRN Reason: Dry Lips Midazolam HCl 100 mg/ Sodium (Chloride) 100 mls @ 2 mls/hr IV TITR OLENA; Protocol Last Admin: 01/20/20 01:06 Dose: 2 mg/hr, 2 mls/hr Documented by: Fentanyl Citrate (Fentanyl Drip Premix) 2,000 mcg in 100 mls @ 7.28 mls/hr IV TITR OLENA; Protocol Last Titration: 01/20/20 04:10 Dose: 4 mcg/kg/hr, 29.121 mls/hr Documented by: Midazolam HCl (Versed) 2 mg IV Q10MIN PRN PRN Reason: Sedation Last Admin: 01/20/20 03:14 Dose: 2 mg Documented by: Multi-Ingred Cream/Lotion/Oil/Oint (Artificial Tears Ophth Oint) 1 applic OU Q4HR PRN PRN Reason: Dry Eye(s) Sodium Chloride (Sodium Chloride Flush Syringe 10 Ml) 10 ml IV BID OLENA Review of Systems ROS unobtainable: due to endotracheal tube Exam - Constitutional Vitals: Temp Pulse Resp BP Pulse Ox 80 20 131/72 100 01/20/20 04:00 01/20/20 04:00 01/20/20 04:00 01/20/20 04:00 General appearance: Present: well-nourished, obese - EENT Eyes: Present: PERRL, EOM intact ENT: hearing intact, clear oral mucosa, dentition normal - Neck Neck: Present: supple, normal ROM - Respiratory Respiratory effort: normal Respiratory: bilateral: CTA - Cardiovascular Rhythm: regular Heart Sounds: Present: S1 & S2 - Extremities Extremities: no ischemia, pulses intact, pulses symmetrical, No edema, Full ROM Peripheral Pulses: within normal limits - Abdominal General gastrointestinal: Present: soft, non-tender, non-distended - Integumentary Integumentary: Present: clear, warm, dry - Musculoskeletal Musculoskeletal: strength equal bilaterally - Psychiatric Psychiatric: appropriate mood/affect, intact judgment & insight - Neurologic Neurologic: CNII-XII intact, moves all extremities Results - Labs CBC & Chem 7: 01/20/20 00:57 01/20/20 00:57 Labs: Abnormal lab results 01/20/20 01/20/20 01/20/20 Range/Units 00:57 00:57 02:22 Lymph % (Auto) 36.2 H (13.4-35.0) % [place] % (Auto) 8.8 H (0.0-7.3) % [place] # 1.0 H (0.0-0.8) K/mm3 ABG pO2 96.9 H (80.0-90.0) mm Hg ABG Base Excess -2.2 L (-2.0-3.0) mmol/L ABG Hemoglobin 8.8 L (12.0-16.0) gm/dl Potassium 3.4 L (3.6-5.0) mmol/L Creatinine 0.5 L (0.7-1.2) mg/dL Glucose 150 H (65-100) mg/dL Assessment and Plan - Patient Problems (1) Status epilepticus Current Visit: Yes Status: Acute Plan to address problem: Patient placed on IV Keppra. Will monitor for seizure disorder. Neurology has been consulted for further evaluation and recommendation. (2) Acute respiratory failure Current Visit: Yes Status: Acute Qualifiers: Respiratory failure complication: unspecified whether with hypoxia or hypercapnia Qualified Code(s): J96.00 - Acute respiratory failure, unspecified whether with hypoxia or hypercapnia Plan to address problem: Patient currently intubated and sedated. Will consult outsole cementer for further evaluation. (3) DVT prophylaxis Current Visit: Yes Status: Acute Plan to address problem: Patient placed on subcutaneous heparin. (4) Full code status Current Visit: Yes Status: Acute
[2020-01-20] MEDS ORDERED: SODIUM CHLORIDE 0.9% 1000 ML 1,000 ML IV SCH (04:30)
[2020-01-20 04:39] LABS: Benzodiazepines Screen,Urine PRESUMPTIVE POSITIVE
[2020-01-20] MEDS ORDERED: fentaNYL DRIP Premix 2,000 MCG/100 ML BAG IV ONE (05:11)
[2020-01-20] MEDS ORDERED: levETIRAcetam 500 MG in DEXTROSE 5% IN WATER 100 ML IV SCH (10:00)
--- NOTE | 2020-01-20 13:06 | Event Note ---
Date: 01/20/20 Patient admitted early this morning for status epilepticus. Patient had seizure episode in the ED and was intubated for airway protection. Neurology is consulted and will follow with the patient.
--- NOTE | 2020-01-20 15:51 | Consultation ---
History of Present Illness Consult date: 01/20/20 Reason for Consult: Seizure Chief complaint: Seizure History of present illness: Patient is a 44-year-old woman with a history of seizures. She presented last night from home as she was found to be having seizures. EMS was called, and patient was noted to be having a witnessed seizure. She was given Versed, and continued to have seizures, after which she was given Ativan. Patient was then brought to [facility] for further evaluation. She was intubated in the emergency room for airway protection. This morning, the patient is noted to be awake, and following commands. She is nodding her head yes and no, and acknowledges that she was compliant with her seizure medications of Trileptal 300 mg twice a day and Keppra 750 mg twice a day at home. Past History Past Medical History: seizures Past Surgical History: No surgical history Social history: no significant social history Family history: no significant family history Medications and Allergies Allergies Allergy/AdvReac Type Severity Reaction Status Date / Time No Known Allergies Allergy Unverified 02/23/18 05:03 Home Medications Medication Instructions Recorded Confirmed Last Taken Type OXcarbazepine [Trileptal] 300 mg PO BID #60 tablet 05/29/19 Unknown Rx levETIRAcetam [Keppra TAB] 750 mg PO BID #60 tablet 05/29/19 Unknown Rx Active Meds: Active Medications Famotidine (Pepcid) 20 mg IV BID [facility] Fentanyl (Sublimaze) 50 mcg IV Q10MIN PRN PRN Reason: ANALGESIA Heparin Sodium (Porcine) (Heparin) 5,000 unit SUB-Q Q8HR [facility] Hydrophilic Ointment (Vaseline Lip Therapy) 1 applic TP Q2HR PRN PRN Reason: Dry Lips Midazolam HCl 100 mg/ Sodium (Chloride) 100 mls @ 2 mls/hr IV TITR OLENA; Protocol Last Admin: 01/20/20 01:06 Dose: 2 mg/hr, 2 mls/hr Documented by: Fentanyl Citrate (Fentanyl Drip Premix) 2,000 mcg in 100 mls @ 7.28 mls/hr IV TITR OLENA; Protocol Last Titration: 01/20/20 04:10 Dose: 4 mcg/kg/hr, 29.121 mls/hr Documented by: Sodium Chloride (Nacl 0.9% 1000 Ml) 1,000 mls @ 75 mls/hr IV DIRECT OLENA Levetiracetam 500 mg/ Dextrose 105 mls @ 400 mls/hr IV Q12HR [facility] Last Admin: 01/20/20 09:31 Dose: 400 mls/hr Documented by: Midazolam HCl (Versed) 2 mg IV Q10MIN PRN PRN Reason: Sedation Last Admin: 01/20/20 03:14 Dose: 2 mg Documented by: Morphine Sulfate (Morphine) 2 mg IV Q4H PRN PRN Reason: Pain, Moderate (4-6) Multi-Ingred Cream/Lotion/Oil/Oint (Artificial Tears Ophth Oint) 1 applic OU Q4HR PRN PRN Reason: Dry Eye(s) Ondansetron HCl (Zofran) 4 mg IV Q8H PRN PRN Reason: Nausea And Vomiting Sodium Chloride (Sodium Chloride Flush Syringe 10 Ml) 10 ml IV BID [facility] Last Admin: 01/20/20 09:31 Dose: 10 ml Documented by: Sodium Chloride (Sodium Chloride Flush Syringe 10 Ml) 10 ml IV PRN PRN PRN Reason: LINE FLUSH Review of Systems ROS unobtainable: due to endotracheal tube All systems: negative Neurological: seizures Physical Examination - Vital Signs Vital Signs: Vital Signs Pulse Resp 144 H 33 H 01/20/20 00:32 01/20/20 00:32 - Physical Exam Narrative exam: Patient is alert, awake, communicates by nodding head yes and no, follows complex commands. Patient is currently intubated. PERRL, EOMI, VFF, bilaterally intact to LT, no facial weakness noted. 5/5 strength in all extremities. Bilaterally intact light touch. 2+ reflexes throughout. - Constitutional General appearance: comfortable - EENT EENT: Present: ATNC, PERRL, mucous membranes moist - Respiratory Respiratory: Present: lungs clear, normal breath sounds - Cardiovascular Cardiovascular: Present: regular rate, normal S1, normal S2 Extremities: Present: no clubbing, cyanosis, no inflammation - Gastrointestinal Gastrointestinal: Present: normoactive bowel sounds, soft, non-tender - Musculoskeletal Musculoskeletal: Present: no fluid collection Results - Laboratory Findings CBC and BMP: 01/20/20 00:57 01/20/20 00:57 Abnormal Lab Findings: Abnormal Labs 01/20/20 01/20/20 01/20/20 00:57 00:57 02:22 Lymph % (Auto) 36.2 H [place] % (Auto) 8.8 H [place] # 1.0 H ABG pO2 96.9 H ABG Base Excess -2.2 L ABG Hemoglobin 8.8 L Potassium 3.4 L Creatinine 0.5 L Glucose 150 H Assessment and Plan Patient is a 44-year-old woman with a history of seizures, who presents with seizures. According patient's clinical findings, it is likely that she has had a seizure. As patient states that she was compliant with her seizure medications, the doses of her previous medication will be increased. Patient is now awake and alert and following commands and communicating, and therefore is not felt to be in status epilepticus at this time. Plan: 1. Seizure: CT head: No acute abnormality. Patient was initially given Versed and Ativan and intubated for airway protection. She is now awake and alert and following commands and communicating by nodding her head. Therefore she is not felt to be in status epilepticus at this time. -We will increase dose of Keppra to 1000 mg twice a day. Continue Trileptal 300 mg twice a day. Patient states that she was compliant with her medications at home. She was previously taking Keppra 750 mg twice a day and Trileptal 300 mg twice a day, therefore decision was made to increase dose of Keppra at this patricia e. -The patient is found to have a seizure, recommend Ativan 1 mg IV stat. If seizure does not resolve within 2 minutes, can repeat x1. Please call primary team and neurology stat if patient is found to have a seizure. -We will continue to monitor patient. Thank you for allowing me to take part in the care of this patient. Ricky Hannah MD Neurology
--- NOTE | 2020-01-20 17:16 | Consultation ---
History of Present Illness Consult date: 01/20/20 Requesting physician: YOMI MEREDITH Reason for consult: other (Acute Hypoxemic Respiratory Failure) History of present illness: PCCM CONSULT NOTE (Full dictation # [id number]) Please see dictated notes for full details Past History Past Medical History: seizures Past Surgical History: No surgical history Social history: no significant social history Family history: no significant family history Medications and Allergies Allergies Allergy/AdvReac Type Severity Reaction Status Date / Time No Known Allergies Allergy Unverified 02/23/18 05:03 Home Medications Medication Instructions Recorded Confirmed Last Taken Type OXcarbazepine [Trileptal] 300 mg PO BID #60 tablet 05/29/19 Unknown Rx levETIRAcetam [Keppra TAB] 750 mg PO BID #60 tablet 05/29/19 Unknown Rx Active Meds: Active Medications Famotidine (Pepcid) 20 mg IV BID [facility]LE[facility] Fentanyl (Sublimaze) 50 mcg IV Q10MIN PRN PRN Reason: ANALGESIA Heparin Sodium (Porcine) (Heparin) 5,000 unit SUB-Q Q8HR [facility] Hydrophilic Ointment (Vaseline Lip Therapy) 1 applic TP Q2HR PRN PRN Reason: Dry Lips Midazolam HCl 100 mg/ Sodium (Chloride) 100 mls @ 2 mls/hr IV TITR OLENA; Protocol Last Admin: 01/20/20 01:06 Dose: 2 mg/hr, 2 mls/hr Documented by: Fentanyl Citrate (Fentanyl Drip Premix) 2,000 mcg in 100 mls @ 7.28 mls/hr IV TITR OLENA; Protocol Last Titration: 01/20/20 04:10 Dose: 4 mcg/kg/hr, 29.121 mls/hr Documented by: Sodium Chloride (Nacl 0.9% 1000 Ml) 1,000 mls @ 75 mls/hr IV DIRECT OLE[facility] Levetiracetam (Keppra) 1,000 mg PO BID OLENA Midazolam HCl (Versed) 2 mg IV Q10MIN PRN PRN Reason: Sedation Last Admin: 01/20/20 03:14 Dose: 2 mg Documented by: Morphine Sulfate (Morphine) 2 mg IV Q4H PRN PRN Reason: Pain, Moderate (4-6) Multi-Ingred Cream/Lotion/Oil/Oint (Artificial Tears Ophth Oint) 1 applic OU Q4HR PRN PRN Reason: Dry Eye(s) Ondansetron HCl (Zofran) 4 mg IV Q8H PRN PRN Reason: Nausea And Vomiting Oxcarbazepine (Trileptal) 300 mg PO BID [facility] Sodium Chloride (Sodium Chloride Flush Syringe 10 Ml) 10 ml IV BID [facility] Last Admin: 01/20/20 09:31 Dose: 10 ml Documented by: Sodium Chloride (Sodium Chloride Flush Syringe 10 Ml) 10 ml IV PRN PRN PRN Reason: LINE FLUSH Physical Examination Vital signs: Vital Signs Pulse Resp 144 H 33 H 01/20/20 00:32 01/20/20 00:32 Results - Laboratory Findings CBC and BMP: 01/20/20 00:57 01/20/20 00:57 ABG ABG pH 7.376 pH Units (7.350-7.450) 01/20/20 02:22 ABG pCO2 39.8 mm Hg 01/20/20 02:22 ABG pO2 96.9 mm Hg (80.0-90.0) H 01/20/20 02:22 ABG O2 Saturation 97.4 % (95.0-99.0) 01/20/20 02:22 Abnormal lab findings: Abnormal Labs 01/20/20 01/20/20 01/20/20 00:57 00:57 02:22 Lymph % (Auto) 36.2 H [place] % (Auto) 8.8 H [place] # 1.0 H ABG pO2 96.9 H ABG Base Excess -2.2 L ABG Hemoglobin 8.8 L Potassium 3.4 L Creatinine 0.5 L Glucose 150 H
[2020-01-20] MEDS ORDERED: HEPARIN 5,000 UNIT/1 ML VIAL ONE (18:22)
[2020-01-20] MEDS ORDERED: FAMOTIDINE 20 MG/2 ML INJ IV ONE ×2 (18:22→22:24)
[2020-01-20] MEDS: HEPARIN 5,000 UNIT/1 ML VIAL SUB-Q SCH (18:28)
[2020-01-20] MEDS: FAMOTIDINE 20 MG/2 ML INJ IV SCH ×2 (18:28→22:32)
--- NOTE | 2020-01-20 21:15 | Consultation ---
CONSULTING PHYSICIAN: Dr. Sánchez Galloway. REASON FOR CONSULTATION: Acute hypoxemic respiratory failure, on mechanical ventilatory support, essentially status epilepticus. CHIEF COMPLAINT AND HISTORY OF PRESENT ILLNESS: The patient is a 44-year-old morbidly obese -[place] female with past medical history significant amongst other things for a diagnosis of seizures. She stated she had been compliant with her medications, but came in complaining of multiple seizures on the day of presentation. She denies any sick contacts. She denies any febrile illness. She denies any urinary tract infection or dysuria. She did say she was having some upper respiratory tract symptoms, but without significant sore throat. She denied arthralgias. While in the Emergency Room, she had another round of seizures and required emergency intubation to protect her airway. We are asked to assist with management. When I stopped by to see her, she was resting peacefully in bed. She had been a few hours seizure free. She denied any prior intubations. She denied any new onset leg pain or swelling either unilaterally or bilaterally. Denied traveled out of the [facility]. She denies a history of tobacco use or abuse whatsoever. This really is as much of the history of presentation as I have. PAST MEDICAL HISTORY: Seizure disorder, obesity. PAST SURGICAL HISTORY: Denies. MEDICATIONS: Medications she was on at the time I stopped by to see her were reviewed. Pertinent medications included the following: Pepcid 20 mg IV b.i.d., fentanyl drip had been going at 1 mcg/kg per hour, heparin 5000 units subQ q. 8 hours, Keppra 1 gram p.o. b.i.d., Versed 2 mg IV q. 10 minutes p.r.n. for sedation, Versed drip had been going at 2 mg per hour, morphine 2 mg IV q. 4 hours p.r.n. moderate pain or fevers, Zofran 4 mg IV q. 8 hours p.r.n. nausea and vomiting, Trileptal 300 mg p.o. b.i.d. ALLERGIES: No known drug allergies. DIET: Morbidly obese. Denies acute weight loss or gain in the preceding few weeks to months. FAMILY AND SOCIAL HISTORY: Lives in the community. Denies current alcohol, tobacco, or illicit drug use or abuse. Family history is otherwise noncontributory. REVIEW OF SYSTEMS: She denied overt loss of consciousness at home. She has the new onset or recurrent seizures. She denies gross hematochezia or melena. Denies gross hematuria or dysuria. Denies hematemesis. Denies hemoptysis. Denies palpitations. Denies heat or cold intolerance. Denies polydipsia or polyuria. Complete 13-system review of systems obtained. Pertinent positives and/or negatives as in body of history above, otherwise are noncontributory. PHYSICAL EXAMINATION: VITAL SIGNS: At presentation in the Emergency Room, she was afebrile, temperature 98.4 degrees rectally with a pulse of 144, respiratory rate of 33, blood pressure 162/103, O2 sats were 98%, inspired oxygen concentration was not recorded. When I stopped by to see her, O2 sats were 99% on the ventilatory mode with a pressure support of 10, PEEP of 6 on 40% FiO2. GENERAL: Morbidly obese, middle-aged -[place] female, normocephalic, atraumatic, responding appropriately with normal respiratory effort at rest. HEAD, EYES, EARS, NOSE AND THROAT: She was anicteric, no conjunctival erythema. Oropharynx was moist. Endotracheal tube was taped at the lips around 23 cm. No gross jugular venous distention. She has a large neck circumference. No thyromegaly. NECK: Grossly, there were no palpable lymph nodes in the supraclavicular or submandibular lymph node chains. LUNGS: Auscultation of both lung freire unremarkable. Lungs were clear bilaterally with good bilateral air movement. HEART: Heart sounds 1 and 2 are heard. They were regular in rate and rhythm at the time of my evaluation without overt rubs or murmurs. ABDOMEN: Protuberant, but not distended. Bowel sounds are positive. Again, nontender, no palpable hepatosplenomegaly. EXTREMITIES: Without overt digital clubbing, cyanosis, no pedal edema. Pedal pulses were 2+ bilaterally. NEUROLOGIC: Pupils were equal, round, about 4 mm, reactive to light. Extraocular muscle movements are intact. She moves all 4 extremities spontaneously. SKIN: Normal turgor without overt cellulitis or rash. PSYCHIATRIC: Her mood was normal. Affect was appropriate. LABORATORY DATA: From my review are as follows: White count 11,000; hemoglobin 12.0; hematocrit 37.7; platelet counts 271. No manual differential. Arterial blood gas showed a pH of 7.38 with a pCO2 of 40, pO2 of 97 that was on 30% FiO2 at presentation. Serum sodium was 141, potassium 3.4, chloride 104, bicarbonate 22, BUN 13, creatinine 0.5, glucose 150. Liver function test within normal limits. Urinalysis was unremarkable. Urine drug screen was negative. Alcohol level was less than 0.01 mg/dL. Tracheal aspirate is still pending. A chest x-ray was done. I have reviewed the chest x-ray. I have also reviewed the radiologist's interpretation. Post-intubation chest x-ray reveals ET tube in good position. There is some enlargement of the gastric air bubble. Otherwise, no acute process, no overt cardiomegaly, blunting opacification of the costophrenic angles is probably due to soft tissue shadows. A CT scan of her head was also done at presentation. I have reviewed the report, no acute abnormality. The urine drug screen was presumptive positive for benzodiazepines, but presumably after intubation on Versed. ASSESSMENT: 1. Acute hypoxemic respiratory failure, on mechanical ventilatory support. 2. Seizure disorder with status. 3. Morbid obesity. 4. Mild hypokalemia. PLAN: I have asked the nursing staff to hold all sedation and this has been held for about an hour. She is following commands appropriately, pulling good volumes. She has passed a spontaneous breathing trial with good ventilatory effort. She will be extubated and placed p.r.n. on bilevel positive airway pressure ventilation therapy. Aspiration precautions will be maintained post-extubation. Ventilator-associated pneumonia bundle has been addressed at this time. Oxygen will be weaned to keep sats greater than or equal to about 90%. I will put her on p.r.n. bronchodilator therapies. We will continue the Keppra at the current dose for as an antiepileptic drugs. PT/OT as necessary. Fall precautions, mobility protocols for pressure ulcer prophylaxis. Electrolytes will be addressed as necessary. Potassium will be supplemented. Bedside dysphagia screen will be done post-extubation, plus or minus swallow evaluation. She is appropriately on GI and DVT prophylaxis. Flu and pneumonia vaccination will be addressed per protocol. Thank you very much for the consult. We will follow along and make further recommendations as picture progresses/becomes clearer. She is critically ill on life-sustaining interventions including mechanical ventilatory support at high risk of from cardiopulmonary system decompensation. At this time, I spent about 35-40 minutes of critical care time without overlap and excluding any procedural time that may be necessary. JOB# [id number] LINDSAY/CASSANDRA
[2020-01-20] MEDS ORDERED: levETIRAcetam 500 MG TAB PO SCH (22:00)
[2020-01-20] MEDS ORDERED: levETIRAcetam 500 MG TAB PO ONE (22:24)
[2020-01-20] MEDS: OXcarbazepine 300 MG TAB PO SCH (22:51)
[2020-01-20] MEDS: levETIRAcetam 500 MG in DEXTROSE 5% IN WATER 100 ML IV SCH (22:55)
[2020-01-21] MEDS: levETIRAcetam 500 MG in DEXTROSE 5% IN WATER 100 ML IV SCH (00:17)
--- NOTE | 2020-01-21 00:21 | Electroencephalogram Report ---
Electroencephalogram EEG Date of exam: 01/20/20 History: Patient is a 44-year-old woman with a history of seizures, who presents with seizures. Impression: 1. Normal EEG 2. No seizures or epileptiform activity noted. Description: The waking background shows an appropriate organization with well-defined anterior posterior voltage and frequency gradients. Posteriorly, there is a well-developed alpha rhythm of [8] Hz which is symmetrical and bilaterally reactive. Anteriorly, there is a pattern of lower voltage and slightly irregular theta and beta range frequencies. Significant movement and lead artifact noted. Photic stimulation and hyperventilation were not performed. Throughout, the recording there are no epileptiform abnormalities, focal or lateralizing features, or significant interhemispheric findings. Interpretation: A normal EEG does not rule out epilepsy. Clinical correlation is recommended.
[2020-01-21] MEDS ORDERED: levETIRAcetam 1,000 MG in DEXTROSE 5% IN WATER 100 ML IV SCH (00:23)
[2020-01-21] MEDS ORDERED: LORazepam 2 MG/ML VIAL IV ONE (01:00)
[2020-01-21] MEDS ORDERED: HEPARIN 5,000 UNIT/1 ML VIAL ONE (01:43)
[2020-01-21] MEDS ORDERED: LORazepam 2 MG/ML VIAL ONE (01:50)
[2020-01-21] MEDS: HEPARIN 5,000 UNIT/1 ML VIAL SUB-Q SCH ×2 (02:00→10:49)
--- NOTE | 2020-01-21 08:58 | Progress Note ---
Assessment and Plan (1) Status epilepticus Current Visit: Yes Status: Acute Plan to address problem: Patient placed on IV Keppra. Will monitor for seizure disorder. Neurology has been consulted for further evaluation and recommendation. (2) Acute respiratory failure Current Visit: Yes Status: Acute Qualifiers: Respiratory failure complication: unspecified whether with hypoxia or hypercapnia Qualified Code(s): J96.00 - Acute respiratory failure, unspecified whether with hypoxia or hypercapnia Plan to address problem: Patient currently intubated and sedated. Will consult soup person for further evaluation. (3) DVT prophylaxis Current Visit: Yes Status: Acute Plan to address problem: Patient placed on subcutaneous heparin. (4) Full code status Current Visit: Yes Status: Acute Subjective Date of service: 01/21/20 Objective Vital Signs - 12hr 01/20/20 01/20/20 01/20/20 21:01 21:15 21:31 Temperature Pulse Rate 101 H 100 H 116 H Respiratory 23 19 15 Rate Blood Pressure 140/88 140/88 140/88 O2 Sat by Pulse 95 98 99 Oximetry 01/20/20 01/20/20 01/20/20 21:45 22:01 22:15 Temperature Pulse Rate 97 H 97 H 91 H Respiratory 22 21 22 Rate Blood Pressure 140/88 113/64 113/64 O2 Sat by Pulse 99 99 98 Oximetry 01/20/20 01/20/20 01/20/20 22:31 22:45 23:01 Temperature Pulse Rate 107 H 97 H 95 H Respiratory 19 25 H 31 H Rate Blood Pressure 113/64 113/64 128/71 O2 Sat by Pulse 100 100 100 Oximetry 01/20/20 01/20/20 01/20/20 23:15 23:31 23:45 Temperature Pulse Rate 93 H 102 H 92 H Respiratory 21 15 20 Rate Blood Pressure 128/71 128/71 128/71 O2 Sat by Pulse 97 99 98 Oximetry 01/21/20 01/21/20 01/21/20 00:01 00:15 00:31 Temperature Pulse Rate 89 96 H 98 H Respiratory 17 15 21 Rate Blood Pressure 128/71 128/71 128/71 O2 Sat by Pulse 100 96 99 Oximetry 01/21/20 01/21/20 01/21/20 00:45 01:01 01:15 Temperature Pulse Rate 88 94 H 102 H Respiratory 18 27 H 27 H Rate Blood Pressure 128/71 128/71 128/71 O2 Sat by Pulse 99 98 99 Oximetry 01/21/20 01/21/20 01/21/20 01:31 01:45 02:01 Temperature Pulse Rate 124 H 121 H 108 H Respiratory 31 H 47 H 26 H Rate Blood Pressure 128/71 128/71 128/71 O2 Sat by Pulse 99 96 99 Oximetry 01/21/20 01/21/20 01/21/20 02:15 02:31 02:45 Temperature Pulse Rate 97 H 91 H 89 Respiratory 24 19 20 Rate Blood Pressure 128/71 128/71 127/72 O2 Sat by Pulse 99 97 99 Oximetry 01/21/20 01/21/20 01/21/20 03:00 03:15 03:30 Temperature Pulse Rate 88 92 H 85 Respiratory 19 17 17 Rate Blood Pressure 124/72 124/72 121/70 O2 Sat by Pulse 99 99 99 Oximetry 01/21/20 01/21/20 01/21/20 03:45 04:00 04:15 Temperature Pulse Rate 92 H 83 87 Respiratory 18 17 19 Rate Blood Pressure 121/70 125/69 125/69 O2 Sat by Pulse 99 100 99 Oximetry 01/21/20 01/21/20 01/21/20 04:30 04:45 05:00 Temperature Pulse Rate 85 89 80 Respiratory 21 21 21 Rate Blood Pressure 107/51 107/51 116/70 O2 Sat by Pulse 100 100 99 Oximetry 01/21/20 01/21/20 01/21/20 05:15 05:21 05:30 Temperature Pulse Rate 87 79 83 Respiratory 20 21 23 Rate Blood Pressure 116/70 116/70 117/70 O2 Sat by Pulse 100 98 99 Oximetry 01/21/20 01/21/20 01/21/20 05:41 06:06 06:37 Temperature 98.6 F Pulse Rate 87 88 Respiratory 19 20 Rate Blood Pressure 117/70 107/45 O2 Sat by Pulse 100 98 100 Oximetry Gastrointestinal: normoactive bowel sounds, soft, non-tender CBC and BMP: 01/20/20 00:57 01/20/20 00:57 ABG, PT/INR, D-dimer: ABG ABG pH 7.376 pH Units (7.350-7.450) 01/20/20 02:22 ABG pCO2 39.8 mm Hg 01/20/20 02:22 ABG pO2 96.9 mm Hg (80.0-90.0) H 01/20/20 02:22 ABG O2 Saturation 97.4 % (95.0-99.0) 01/20/20 02:22 Abnormal lab findings: Abnormal Labs 01/20/20 01/20/20 01/20/20 00:57 00:57 02:22 Lymph % (Auto) 36.2 H [place] % (Auto) 8.8 H [place] # 1.0 H ABG pO2 96.9 H ABG Base Excess -2.2 L ABG Hemoglobin 8.8 L Potassium 3.4 L Creatinine 0.5 L Glucose 150 H
--- NOTE | 2020-01-21 09:46 | XRay Report ---
CHEST 1 VIEW INDICATION / CLINICAL INFORMATION: follow up respiratory failure. COMPARISON: 01/20/2020 FINDINGS: SUPPORT DEVICES: Endotracheal tube is been removed. HEART / MEDIASTINUM: No significant abnormality. LUNGS / PLEURA: No significant pulmonary or pleural abnormality.. No pneumothorax. ADDITIONAL FINDINGS: No significant additional findings. IMPRESSION: 1. No significant change. Signer Name: Kimo Conner MD Signed: 01/21/2020 9:42 AM Workstation Name: [id number]
--- NOTE | 2020-01-21 09:51 | Discharge Summary ---
Providers - Providers Date of Admission: 01/20/20 04:29 Date of discharge: 01/21/20 Attending physician: SUYAPA MONTALVO 01/20/20 00:28 Consult to Dietitian/Nutrition [CONS] Routine Physician Instructions: Reason For Exam: Reason for Consult: Evaluate nutritional intake 01/20/20 04:20 Consult to Dietitian/Nutrition [CONS] Routine Physician Instructions: Reason For Exam: Reason for Consult: Diet education Consult to Physician [CONS] Routine Comment: Consulting Provider: SOFY FRANCE Physician Instructions: Reason For Exam: acute respiratory failure, seizure disorder 01/20/20 04:23 Consult to Physician [CONS] Routine Comment: Consulting Provider: MAYI PRICE Physician Instructions: Reason For Exam: status epilepticus Primary care physician: [facility] Hospitalization Reason for admission: sz d/o Condition: Critical Procedures: EEG Hospital course: Patient is a 44-year-old woman with a history of seizures who presented the night [employer] from home with seizures. EMS was called, and patient was noted to be having a witnessed seizure. She was given Versed, and continued to have seizures, after which she was given Ativan. Patient was then brought to [facility] for further evaluation. She was intubated in the emergency room for airway protection. She acknowledged that she was compliant with her seizure medications of Trileptal 300 mg twice a day and Keppra 750 mg twice a day at home. CT scan of the head showed no acute abnormality. Neurology saw the patient in consultation and increased dose of Keppra to 1000 mg twice daily. Neurology also recommended to continue Trileptal 300 mg twice a day. The patient later underwent EEG that was found to be normal with no seizure or epileptiform activity. The patient was extubated and has done well since extubation. Patient is back to her baseline respiratory status. Patient has had no new seizure activity since admission. Therefore, patient is felt to receive maximal hospital benefit and will be discharged home. Dedicated discharge time 35 minutes. Disposition: -01 TO HOME OR SELFCARE Time spent for discharge: 35 - Discharge Diagnoses (1) Acute respiratory failure Status: Acute Qualifiers: Respiratory failure complication: unspecified whether with hypoxia or hypercapnia Qualified Code(s): J96.00 - Acute respiratory failure, unspecified whether with hypoxia or hypercapnia (2) Status epilepticus Status: Acute (3) Medical non-compliance Status: Acute Core Measure Documentation - Palliative Care Palliative Care/ Comfort Measures: Not Applicable - Core Measures Any of the following diagnoses?: none Exam - Constitutional Vitals: Temp Pulse Resp BP Pulse Ox 98.6 F 88 20 107/45 100 01/21/20 06:06 01/21/20 06:06 01/21/20 06:06 01/21/20 06:06 01/21/20 06:37 General appearance: Present: no acute distress, well-nourished - EENT Eyes: Present: PERRL ENT: hearing intact, clear oral mucosa - Neck Neck: Present: supple, normal ROM - Respiratory Respiratory effort: normal Respiratory: bilateral: CTA - Cardiovascular Heart Sounds: Present: S1 & S2. Absent: rub, click - Extremities Extremities: pulses symmetrical, No edema Peripheral Pulses: within normal limits - Abdominal General gastrointestinal: Present: soft, non-tender, non-distended, normal bowel sounds Female genitourinary: Present: normal - Integumentary Integumentary: Present: clear, warm, dry - Musculoskeletal Musculoskeletal: gait normal, strength equal bilaterally - Psychiatric Psychiatric: appropriate mood/affect, intact judgment & insight - Neurologic Neurologic: CNII-XII intact, moves all extremities Plan Activity: advance as tolerated Weight Bearing Status: Weight Bear as Tolerated Diet: regular Follow up with: PRIMARY CARE, [Primary Care Provider] - 3-5 Days MAYI PRICE MD [Staff Physician] - 7 Days Prescriptions: levETIRAcetam [Keppra TAB] 1,000 mg PO BID #60 tab OXcarbazepine [Trileptal] 300 mg PO BID #60 tablet
[2020-01-21 10:13] LABS: Basophils # (Auto) 0.1 K/mm3 (0.0-0.1); Basophils % (Auto) 0.9 % (0.0-1.8); Eosinophils # (Auto) 0.1 K/mm3 (0.0-0.4); Eosinophils % (Auto) 1.4 % (0.0-4.3); Hematocrit 36.4 % (30.3-42.9); Hemoglobin 11.6 gm/dl (10.1-14.3); Lymphocytes # (Auto) 2.5 K/mm3 (1.2-5.4); Mean Corpuscular HGB Conc 32 % (30-34); Mean Corpuscular Volume 89 fl (79-97); Monocytes % (Auto) 9.2 % (0.0-7.3); Platelet Count 247 K/mm3 (140-440); Red Blood Count 4.11 M/mm3 (3.65-5.03); Red Cell Distribution Width 13.3 % (13.2-15.2)
[2020-01-21 10:30] LABS: INR 1.02 (0.87-1.13)
[2020-01-21 10:31] LABS: Partial Thromboplastin Time 29.1 Sec. (24.2-36.6)
[2020-01-21 10:32] LABS: BUN/Creatinine Ratio 13; Blood Urea Nitrogen 5 mg/dL (7-17); Calcium 8.6 mg/dL (8.4-10.2); Hemolysis Index 7
[2020-01-21] MEDS: OXcarbazepine 300 MG TAB PO SCH (10:48)
[2020-01-21] MEDS: FAMOTIDINE 20 MG/2 ML INJ IV SCH (10:48)
[2020-01-21 13:14] VITALS: BP 145/88
--- NOTE | 2020-01-21 21:17 | Progress Note ---
Assessment and Plan Patient is a 44-year-old woman with a history of seizures, who presents with seizures. According patient's clinical findings, it is likely that she has had a seizure. As patient states that she was compliant with her seizure medications, the doses of her previous medication will be increased. Patient is now awake and alert and following commands and communicating, and therefore is not felt to be in status epilepticus at this time. Plan: 1. Seizure: CT head: No acute abnormality. Patient was initially given Versed and Ativan and intubated for airway protection. She is now awake and alert and following commands and back at baseline of mental status. -Cont. Keppra to 1000 mg twice a day. Continue Trileptal 300 mg twice a day. Patient states that she was compliant with her medications at home. She was previously taking Keppra 750 mg twice a day and Trileptal 300 mg twice a day, therefore decision was made to increase dose of Keppra at this time. -The patient is found to have a seizure, recommend Ativan 1 mg IV stat. If seizure does not resolve within 2 minutes, can repeat x1. Please call primary team and neurology stat if patient is found to have a seizure. - Recommend further w/u of LLE tenderness per primary team, recommend LE venous doppler to r/o DVT> . - Will sign off. Please call with any questions. Thank you for allowing me to take part in the care of this patient. Ricky Hannah MD Neurology Subjective Date of service: 01/21/20 Principal diagnosis: Seizure Interval history: No acute events overnight. Objective - Exam Narrative Exam: Patient is alert, awake, oriented x4, follows complex commands. PERRL, EOMI, VFF, bilaterally intact to LT, no facial weakness noted. 5/5 strength in all extremities. Bilaterally intact light touch. 2+ reflexes throughout. No dysarthria or aphasia noted. Noted to have LLE tenderness in lower calf region. - Vital Sign Vital Signs - 12hr 01/21/20 01/21/20 01/21/20 12:17 12:53 13:00 Temperature 98.4 F Pulse Rate 84 99 H Respiratory 18 Rate Blood Pressure 129/75 145/88 O2 Sat by Pulse 99 100 97 Oximetry - General Apperance Constitutional: comfortable - EENT EENT: ATNC, PERRL, mucous membranes moist, hearing intact, vision intact - Respiratory Respiratory: lungs clear, normal breath sounds - Cardiovascular Cardiovascular: regular rate, normal S1, normal S2 Extremities: no clubbing, cyanosis, no inflammation - Gastrointestinal Gastrointestinal: normoactive bowel sounds, soft, non-tender - Integumentary Integumentary: normal - Musculoskeletal Musculoskeletal: no fluid collection, no pain - Psychiatric Psychiatric: mood/affect appropriate - Laboratory Findings CBC and BMP: 01/21/20 09:22 01/21/20 09:22 Abnormal Lab Findings: Abnormal Labs 01/20/20 01/20/20 01/20/20 00:57 00:57 02:22 Lymph % (Auto) 36.2 H Glades % (Auto) 8.8 H Glades # 1.0 H ABG pO2 96.9 H ABG Base Excess -2.2 L ABG Hemoglobin 8.8 L Potassium 3.4 L BUN Creatinine 0.5 L Glucose 150 H POC Glucose 01/21/20 01/21/20 01/21/20 09:22 09:22 13:10 Lymph % (Auto) Glades % (Auto) 9.2 H Glades # 1.0 H ABG pO2 ABG Base Excess ABG Hemoglobin Potassium 3.4 L BUN 5 L Creatinine 0.4 L Glucose 101 H POC Glucose 108 H
== END 2020-01-21 15:04 | disposition home or self-care (01) | DRG 208 ==
LOC: ED 00:11 → CC1 04:29 → 3A 18:42
PROVIDERS: ADMIT Internal Medicine Geriatric Medicine; ATTEND Hospitalist
PROC: 0BH17EZ Insertion of Endotracheal Airway into Trachea, Via Natural or Artificial Opening (ICD-10-PCS; principal; 2020-01-20)
PROC: 5A1935Z Respiratory Ventilation, Less than 24 Consecutive Hours (ICD-10-PCS; 2020-01-20)
PROC: 4A033R1 Measurement of Arterial Saturation, Peripheral, Percutaneous Approach (ICD-10-PCS; 2020-01-20)
DX: J96.00 Acute respiratory failure, unspecified whether with hypoxia or hypercapnia (principal); G40.901 Epilepsy, unspecified, not intractable, with status epilepticus; Z91.14 Patient's other noncompliance with medication regimen; E87.6 Hypokalemia; E66.01 Morbid (severe) obesity due to excess calories; Z68.43 Body mass index [BMI] 50.0-59.9, adult
CPT/HCPCS: 36415; 70450; 71045; 80048; 80053; 80307; 80320; 81001; 82803; 82962; 85025; 85610; 85730; 87070; 87205; 93005; 93010; 94002; 95819; G0378; G0480; J1644; J1953; J2060; J2250; J2405; J3010; J7030

== ENCOUNTER 2020-01-29 09:27 | Outpatient (CLI) | payer MEDICAID ==
[2020-01-29 10:03] LABS: Basophils # (Auto) 0.1 K/mm3 (0.0-0.1); Eosinophils # (Auto) 0.5 K/mm3 (0.0-0.4); Eosinophils % (Auto) 4.4 % (0.0-4.3); Hematocrit 37.2 % (30.3-42.9); Lymphocytes # (Auto) 3.2 K/mm3 (1.2-5.4); Lymphocytes % (Auto) 30.1 % (13.4-35.0); Mean Corpuscular HGB Conc 32 % (30-34); Mean Corpuscular Volume 89 fl (79-97); Monocytes % (Auto) 9.7 % (0.0-7.3); Platelet Count 272 K/mm3 (140-440); Red Blood Count 4.17 M/mm3 (3.65-5.03); Red Cell Distribution Width 13.4 % (13.2-15.2)
[2020-01-29 10:20] LABS: Alanine Aminotransferase 22 units/L (7-56); Albumin 4.1 g/dL (3.9-5); BUN/Creatinine Ratio 20; Blood Urea Nitrogen 10 mg/dL (7-17); Calcium 9.4 mg/dL (8.4-10.2); Chol/HDL Ratio 3.86 %; HDL Cholesterol 37 mg/dL (40-59); Hemolysis Index 18; LDL Cholesterol,Direct 99 mg/dL (50-130)
[2020-02-01 10:33] LABS: Vitamin D, 25-OH, D2 36 ng/mL
== END 2020-01-29 09:28 | disposition home or self-care (01) ==
LOC: LAB 09:27
PROVIDERS: ATTEND Internal Medicine
DX: Z00.00 Encounter for general adult medical examination without abnormal findings (principal); R73.9 Hyperglycemia, unspecified; E56.9 Vitamin deficiency, unspecified; E55.9 Vitamin D deficiency, unspecified; E66.01 Morbid (severe) obesity due to excess calories; Z13.29 Encounter for screening for other suspected endocrine disorder
CPT/HCPCS: 36415; 80053; 80061; 82306; 82607; 83036; 84443; 85025

== ENCOUNTER 2020-12-10 14:17 | Emergency (ER) | payer MEDICAID ==
[2020-12-10] MEDS ORDERED: OXcarbazepine 150 MG TAB PO ONE (14:38)
[2020-12-10] MEDS ORDERED: levETIRAcetam 1000 MG/NS 0.75% 1,000 MG/100 ML BAG IV ONE (14:38)
[2020-12-10] MEDS ORDERED: levETIRAcetam 500 MG in DEXTROSE 5% IN WATER 100 ML IV ONE (14:38)
[2020-12-10] MEDS ORDERED: KETOROLAC 30 MG/1 ML INJ IV ONE (14:41)
--- NOTE | 2020-12-10 14:42 | Emergency Department Report ---
ED Seizure HPI - General Chief Complaint: Seizure Stated Complaint: SEIZURE Time Seen by Provider: 12/10/20 14:37 Source: EMS Mode of arrival: Stretcher Limitations: Altered Mental Status - History of Present Illness Initial Comments: Patient is a 45-year-old F [place]an female who has a past medical history of seizure disorder who is here status post several seizures at home. Patient still somewhat confused and postictal but states that she ran out of the white seizure medication. Patient is on Trileptal and Keppra. Trileptal is usually a brown to orange pill. Keppra is white. Is assumed that the patient is out of the Keppra. Patient states she has a mild headache but denies any nausea vomiting. - Related Data Previous Rx's Medication Instructions Recorded Last Taken Type OXcarbazepine [Trileptal] 300 mg PO BID #60 tablet 01/21/20 Unknown Rx OXcarbazepine [Trileptal] 300 mg PO BID #60 tablet 01/21/20 Unknown Rx levETIRAcetam [Keppra TAB] 1,000 mg PO BID #60 tab 12/10/20 Unknown Rx Allergies Allergy/AdvReac Type Severity Reaction Status Date / Time No Known Allergies Allergy Unverified 02/23/18 05:03 ED Review of Systems ROS: Stated complaint: SEIZURE Other details as noted in HPI Comment: All other systems reviewed and negative ED Past Medical Hx - Past Medical History Hx Seizures: Yes - Social History Smoking Status: Unknown if ever smoked - Medications Home Medications: Home Medications Medication Instructions Recorded Confirmed Last Taken Type OXcarbazepine [Trileptal] 300 mg PO BID #60 tablet 01/21/20 Unknown Rx OXcarbazepine [Trileptal] 300 mg PO BID #60 tablet 01/21/20 Unknown Rx levETIRAcetam [Keppra TAB] 1,000 mg PO BID #60 tab 12/10/20 Unknown Rx ED Physical Exam - General Limitations: Altered Mental Status General appearance: alert, in no apparent distress, postictal - Head Head exam: Present: atraumatic, normocephalic - Eye Eye exam: Present: normal appearance - ENT ENT exam: Present: mucous membranes moist - Neck Neck exam: Present: normal inspection - Respiratory Respiratory exam: Present: normal lung sounds bilaterally. Absent: respiratory distress, wheezes, rales, rhonchi - Cardiovascular Cardiovascular Exam: Present: regular rate, normal rhythm, normal heart sounds. Absent: systolic murmur, diastolic murmur, rubs, gallop - GI/Abdominal GI/Abdominal exam: Present: soft, normal bowel sounds. Absent: distended, tenderness, guarding, rebound - Extremities Exam Extremities exam: Present: normal inspection - Back Exam Back exam: Present: normal inspection - Neurological Exam Neurological exam: Present: alert, oriented X3 - Psychiatric Psychiatric exam: Present: normal affect, normal mood - Skin Skin exam: Present: warm, dry, intact, normal color. Absent: rash ED Course Vital Signs 12/10/20 12/10/20 14:32 15:41 Temperature 98.1 F Pulse Rate 102 H 93 H Respiratory 26 H 18 Rate Blood Pressure 132/79 132/81 [Left] O2 Sat by Pulse 98 99 Oximetry ED Medical Decision Making - Lab Data Result diagrams: 12/10/20 14:45 12/10/20 14:45 Lab Results 12/10/20 12/10/20 Range/Units 14:45 14:45 WBC 7.6 (4.5-11.0) K/mm3 RBC 4.11 (3.65-5.03) M/mm3 Hgb 11.9 (10.1-14.3) gm/dl Hct 36.6 (30.3-42.9) % MCV 89 (79-97) fl MCH 29 (28-32) pg MCHC 33 (30-34) % RDW 13.1 L (13.2-15.2) % Plt Count 264 (140-440) K/mm3 Lymph % (Auto) 25.5 (13.4-35.0) % [place] % (Auto) 8.7 H (0.0-7.3) % Eos % (Auto) 1.8 (0.0-4.3) % Baso % (Auto) 1.3 (0.0-1.8) % Lymph # (Auto) 1.9 (1.2-5.4) K/mm3 [place] # (Auto) 0.7 (0.0-0.8) K/mm3 Eos # (Auto) 0.1 (0.0-0.4) K/mm3 Baso # (Auto) 0.1 (0.0-0.1) K/mm3 Seg Neutrophils % 62.7 (40.0-70.0) % Seg Neutrophils # 4.8 (1.8-7.7) K/mm3 Sodium 144 (137-145) mmol/L Potassium 3.8 (3.6-5.0) mmol/L Chloride 106.4 (98-107) mmol/L Carbon Dioxide 24 (22-30) mmol/L Anion Gap 17 mmol/L BUN 8 (7-17) mg/dL Creatinine 0.5 L (0.6-1.2) mg/dL Estimated GFR > 60 ml/min BUN/Creatinine Ratio 16 % Glucose 120 H (65-100) mg/dL Calcium 9.4 (8.4-10.2) mg/dL - Medical Decision Making Thanks patient is a 45-year-old F [place]an female who is presenting with seizure activity. She running low on her Keppra. She states she was out however she does have 6 pills in the bottle. Patient will have this refilled. She does have some sufficient amount of her Trileptal. Patient has had no further seizure activity. She is alert and oriented x3. Critical care attestation.: If time is entered above; I have spent that time in minutes in the direct care of this critically ill patient, excluding procedure time. ED Disposition Clinical Impression: Seizure, Seizure secondary to subtherapeutic anticonvulsant medication Disposition: DC-01 TO HOME OR SELFCARE Is pt being admited?: No Does the pt Need Aspirin: No Condition: Stable Instructions: Seizure, Adult Prescriptions: levETIRAcetam [Keppra TAB] 1,000 mg PO BID #60 tab Referrals: PRIMARY CARE, [Primary Care Provider] - 3-5 Days Time of Disposition: 16:38
[2020-12-10 15:04] LABS: Basophils # (Auto) 0.1 K/mm3 (0.0-0.1); Basophils % (Auto) 1.3 % (0.0-1.8); Eosinophils # (Auto) 0.1 K/mm3 (0.0-0.4); Eosinophils % (Auto) 1.8 % (0.0-4.3); Hematocrit 36.6 % (30.3-42.9); Hemoglobin 11.9 gm/dl (10.1-14.3); Lymphocytes # (Auto) 1.9 K/mm3 (1.2-5.4); Lymphocytes % (Auto) 25.5 % (13.4-35.0); Mean Corpuscular HGB Conc 33 % (30-34); Mean Corpuscular Volume 89 fl (79-97); Monocytes # (Auto) 0.7 K/mm3 (0.0-0.8); Monocytes % (Auto) 8.7 % (0.0-7.3); Platelet Count 264 K/mm3 (140-440); Red Blood Count 4.11 M/mm3 (3.65-5.03); Red Cell Distribution Width 13.1 % (13.2-15.2)
[2020-12-10 15:19] LABS: Blood Urea Nitrogen 8 mg/dL (7-17); Calcium 9.4 mg/dL (8.4-10.2); Hemolysis Index 30
[2020-12-10 15:27] LABS: BUN/Creatinine Ratio 16
[2020-12-10 16:56] VITALS: BP 120/53
== END 2020-12-10 16:56 | disposition home or self-care (01) ==
LOC: ED 14:17
DX: R56.9 Unspecified convulsions (principal); R51.9 Headache, unspecified; Z79.899 Other long term (current) drug therapy
CPT/HCPCS: 36415; 80048; 85025; 96365; 96375; 96376; 99284; J1885; J1953

== ENCOUNTER 2021-01-30 10:59 | Outpatient (CLI) | payer MEDICAID ==
[2021-01-30 11:39] LABS: Basophils # (Auto) 0.1 K/mm3 (0.0-0.1); Basophils % (Auto) 0.9 % (0.0-1.8); Eosinophils # (Auto) 0.4 K/mm3 (0.0-0.4); Eosinophils % (Auto) 4.3 % (0.0-4.3); Hematocrit 38.6 % (30.3-42.9); Hemoglobin 12.2 gm/dl (10.1-14.3); Lymphocytes # (Auto) 3.2 K/mm3 (1.2-5.4); Lymphocytes % (Auto) 31.7 % (13.4-35.0); Mean Corpuscular HGB Conc 32 % (30-34); Mean Corpuscular Volume 89 fl (79-97); Monocytes # (Auto) 0.9 K/mm3 (0.0-0.8); Monocytes % (Auto) 8.8 % (0.0-7.3); Platelet Count 248 K/mm3 (140-440); Red Blood Count 4.33 M/mm3 (3.65-5.03); Red Cell Distribution Width 13.3 % (13.2-15.2)
[2021-01-30 11:50] LABS: Bilirubin,Urine NEG (Negative); Blood,Urine SM (Negative); Color,Urine Yellow (Yellow); Mucus,Urine FEW /HPF; Protein,Urine <15 mg/dL mg/dL (Negative)
[2021-01-30 12:07] LABS: Alanine Aminotransferase 14 units/L (7-56); Albumin 4.3 g/dL (3.9-5); Blood Urea Nitrogen 8 mg/dL (7-17); Calcium 9.3 mg/dL (8.4-10.2); HDL Cholesterol 55 mg/dL (40-59); Hemolysis Index 25; LDL Cholesterol,Direct 126 mg/dL (50-130)
[2021-01-30 12:08] LABS: BUN/Creatinine Ratio 16
[2021-02-04 12:46] LABS: Vitamin D, 25-OH, D2 14 ng/mL
== END 2021-01-30 11:00 | disposition home or self-care (01) ==
LOC: LAB 10:59
PROVIDERS: ATTEND Internal Medicine
DX: Z00.00 Encounter for general adult medical examination without abnormal findings (principal); R73.9 Hyperglycemia, unspecified; Z13.220 Encounter for screening for lipoid disorders; E66.01 Morbid (severe) obesity due to excess calories; Z13.29 Encounter for screening for other suspected endocrine disorder; N39.0 Urinary tract infection, site not specified; E55.9 Vitamin D deficiency, unspecified
CPT/HCPCS: 36415; 80053; 80061; 81001; 82306; 83036; 84443; 85025

== ENCOUNTER 2021-02-01 12:37 | Outpatient (CLI) | payer MEDICAID ==
--- NOTE | 2021-02-01 14:51 | Mammography Report ---
DIGITAL SCREENING MAMMOGRAM WITH CAD, 02/01/2021 CLINICAL INFORMATION / INDICATION: Routine screening mammography. TECHNIQUE: Digital bilateral 2D mammography was obtained in the craniocaudal and mediolateral obliqu e projections. This examination was interpreted with the benefit of Computer-Aided Detection analysis . COMPARISON: 11/06/2018 FINDINGS: Breast Density: There are scattered areas of fibroglandular density. No dominant mass, suspicious calcifications, or architectural distortion in either breast. No interval change. IMPRESSION: No mammographic evidence of malignancy. Follow up recommendation: Routine yearly BI-RADS Category 1: Negative. A "normal" or negative report should not discourage follow up or biopsy of a clinically significant f inding. A written summary of these findings will be mailed to the patient. The patient will be entered into a mammography reporting system which will generate a reminder letter for the patient's next appointmen t at the appropriate interval. The [employer] recommends yearly mammograms starting at age 40 and continuing as l frida as a woman is in good health. Breast MRI is recommended for women with an approximate 20-25% or greater lifetime risk of breast cancer, including women with a strong family history of breast or ova latricia cancer or who have been treated for Hodgkin's disease. Signer Name: Brunilda Dinh MD Signed: 02/01/2021 2:47 PM Workstation Name: [id number]
== END 2021-02-01 12:38 | disposition home or self-care (01) ==
LOC: MAMMO 12:37
PROVIDERS: ATTEND Internal Medicine
DX: Z12.31 Encounter for screening mammogram for malignant neoplasm of breast (principal)
CPT/HCPCS: 77067

== ENCOUNTER 2021-05-25 00:10 | Emergency (ER) | payer MEDICAID ==
[2021-05-25] MEDS ORDERED: levETIRAcetam 1000 MG/NS 0.75% 1,000 MG/100 ML BAG IV ONE ×2 (00:40→01:24)
--- NOTE | 2021-05-25 02:53 | Emergency Department Report ---
ED Seizure HPI - General Chief Complaint: Seizure Stated Complaint: seizure Time Seen by Provider: 05/25/21 00:10 Source: patient, EMS Mode of arrival: Stretcher Limitations: No Limitations - History of Present Illness Initial Comments: Patient is a 46-year-old female that presents emergency room with seizure activity. Patient is currently postictal. Report received from EMS. Patient oriented x2. Patient is oriented to self. EMS states patient has a history of seizure. EMS states that patient is compliant with her medications. EMS witnessed a seizure and gave the patient Ativan. EMS states the patient has a history of breakthrough seizures. Patient denies pain. Patient denies recent travel. Patient denies recent international travel. Patient denies exposure to the novel coronavirus. Patient denies sick contacts. Patient denies fever and chills. Patient denies cough. Patient denies diarrhea. Patient denies coming in contact with anybody with symptoms of the novel coronavirus. MD Complaint: seizure -: Sudden Description of Episode: loss of consciousness, tonic-clonic movement -: second(s) Witnessed:: Yes Trauma: No Seizure History: known seizure disorder, compliant with medication Place: home Possible Precipitating Event: stress Associated Symptoms: confusion, malaise. denies: chest pain, cough, diaphoresis, fever/chills, loss of appetite, rash, shortness of breath, syncope, weakness, tongue injury, shoulder dislocation Treatments Prior to Arrival: benzodiazepines - Related Data Previous Rx's Medication Instructions Recorded Last Taken Type OXcarbazepine [Trileptal] 300 mg PO BID #60 tablet 01/21/20 Unknown Rx OXcarbazepine [Trileptal] 300 mg PO BID #60 tablet 01/21/20 Unknown Rx levETIRAcetam [Keppra TAB] 1,000 mg PO BID #60 tab 12/10/20 Unknown Rx Allergies Allergy/AdvReac Type Severity Reaction Status Date / Time No Known Allergies Allergy Unverified 02/23/18 05:03 ED Review of Systems ROS: Stated complaint: Other details as noted in HPI Comment: All other systems reviewed and negative ED Past Medical Hx - Past Medical History Previous Medical History?: Yes Hx Seizures: Yes - Surgical History Past Surgical History?: No - Family History Family history: no significant - Social History Smoking Status: Never Smoker Substance Use Type: Alcohol - Medications Home Medications: Home Medications Medication Instructions Recorded Confirmed Last Taken Type OXcarbazepine [Trileptal] 300 mg PO BID #60 tablet 01/21/20 Unknown Rx OXcarbazepine [Trileptal] 300 mg PO BID #60 tablet 01/21/20 Unknown Rx levETIRAcetam [Keppra TAB] 1,000 mg PO BID #60 tab 12/10/20 Unknown Rx ED Physical Exam - General Limitations: No Limitations General appearance: in no apparent distress, lethargic - Head Head exam: Present: atraumatic, normocephalic - Eye Eye exam: Present: normal appearance, PERRL Pupils: Present: normal accommodation - ENT ENT exam: Present: mucous membranes moist - Neck Neck exam: Present: normal inspection - Respiratory Respiratory exam: Present: normal lung sounds bilaterally. Absent: respiratory distress, wheezes, rales - Cardiovascular Cardiovascular Exam: Present: regular rate, normal rhythm. Absent: systolic murmur, diastolic murmur, rubs, gallop - GI/Abdominal GI/Abdominal exam: Present: soft, normal bowel sounds - Extremities Exam Extremities exam: Present: normal inspection - Back Exam Back exam: Present: normal inspection - Neurological Exam Neurological exam: Present: altered - Skin Skin exam: Present: warm, dry, intact, normal color. Absent: rash ED Course Vital Signs 05/25/21 05/25/21 05/25/21 00:10 02:56 03:01 Temperature 98.9 F Pulse Rate 112 H 82 97 H Respiratory 20 22 23 Rate Blood Pressure 118/71 108/65 O2 Sat by Pulse 98 98 96 Oximetry 05/25/21 05/25/21 05/25/21 03:31 04:01 04:31 Temperature Pulse Rate 96 H 88 88 Respiratory 25 H 23 23 Rate Blood Pressure 101/62 118/68 124/73 O2 Sat by Pulse 96 97 97 Oximetry 05/25/21 05:01 Temperature Pulse Rate 85 Respiratory 23 Rate Blood Pressure 100/60 O2 Sat by Pulse 98 Oximetry - Reevaluation(s) Reevaluation #1: She is oriented x3. Patient has not had further seizure activity in the ER. 05/25/21 00:48 Reevaluation #2: Patient is oriented x3. Patient has not had further seizure activity in the ER. Patient denies pain. Patient resting comfortably in the ER. 05/25/21 01:49 Reevaluation #3: Patient is oriented x3. Patient states her confusion is improving. Patient states she still feels tired. 05/25/21 02:49 Reevaluation #4: I discussed all results and clinical findings with patient. I discussed plan of care with patient. Patient agrees with plan of care. Patient is stable for discharge. Patient will be discharged home. Patient given discharge instructions. Patient voiced understanding of discharge instructions. 05/25/21 05:20 ED Medical Decision Making - Lab Data Result diagrams: 05/25/21 01:40 05/25/21 01:40 - Medical Decision Making Patient is a 46-year-old female who presents emergency room with complaints of seizure activity. Patient is a history of seizure. Patient was given Ativan by EMS because they witnessed her having a seizure. Patient is compliant with medications. Patient given IV Keppra and no further seizure activity was noted in the ER. Patient had labs done which were essentially unremarkable. Patient'S WBC was elevated this most likely secondary to the seizure. Patient not have any abnormal vital signs. Patient vital signs are stable. Patient vital signs are reassuring. Patient monitored for several hours and no seizure activity was noted in the ER. Patient does not require further emergency medical service. Patient not require inpatient services. Patient is stable for discharge. Patient discharged home. - Differential Diagnosis Seizure, seizure activity, stress Critical care attestation.: If time is entered above; I have spent that time in minutes in the direct care of this critically ill patient, excluding procedure time. ED Disposition Clinical Impression: Seizure-like activity, Seizures Disposition: DC-01 TO HOME OR SELFCARE Is pt being admited?: No Does the pt Need Aspirin: No Condition: Stable Instructions: Epilepsy, [id number], Seizure, Adult, [id number] Additional Instructions: Patient to follow-up with primary care in 2 to 3 days. Patient to follow-up with your neurologist in 2 to 3 days. Patient to rest. Patient to increase water. Patient to avoid strenuous exercise or heavy lifting until cleared by neurology and primary care. Patient to take Tylenol or ibuprofen as needed for pain. Patient to continue all medications. Patient did not miss seizure medications. Patient to avoid driving. Patient to return to the ER if condition worsens, changes or new symptoms arise. Referrals: SULEIMAN DELGADO MD [Primary Care Provider] - 2-3 Days Time of Disposition: 05:23
[2021-05-25 03:28] LABS: Basophils # (Auto) 0.1 K/mm3 (0.0-0.1); Basophils % (Auto) 0.5 % (0.0-1.8); Eosinophils # (Auto) 0.1 K/mm3 (0.0-0.4); Eosinophils % (Auto) 0.4 % (0.0-4.3); Hematocrit 35.6 % (30.3-42.9); Hemoglobin 11.5 gm/dl (10.1-14.3); Lymphocytes # (Auto) 1.3 K/mm3 (1.2-5.4); Lymphocytes % (Auto) 9.1 % (13.4-35.0); Mean Corpuscular HGB Conc 32 % (30-34); Mean Corpuscular Volume 89 fl (79-97); Monocytes # (Auto) 1.5 K/mm3 (0.0-0.8); Monocytes % (Auto) 10.5 % (0.0-7.3); Platelet Count 252 K/mm3 (140-440); Red Blood Count 3.99 M/mm3 (3.65-5.03); Red Cell Distribution Width 13.3 % (13.2-15.2)
[2021-05-25 03:48] LABS: Alanine Aminotransferase 62 units/L (7-56); Albumin 4.1 g/dL (3.9-5); Blood Urea Nitrogen 7 mg/dL (7-17); Calcium 9.3 mg/dL (8.4-10.2); Hemolysis Index 3
[2021-05-25 03:50] LABS: BUN/Creatinine Ratio 14
[2021-05-25 06:19] VITALS: BP 138/81
== END 2021-05-25 06:18 | disposition home or self-care (01) ==
LOC: ED 00:10
DX: R56.9 Unspecified convulsions (principal); Z79.899 Other long term (current) drug therapy
CPT/HCPCS: 36415; 80053; 85025; 96374; 99284; J1953

== ENCOUNTER 2021-08-15 10:00 | Outpatient (CLI) | payer MEDICAID ==
[2021-08-15 10:39] LABS: Chol/HDL Ratio 3.93 %
== END 2021-08-15 10:01 | disposition home or self-care (01) ==
LOC: LAB 10:00
PROVIDERS: ATTEND Internal Medicine
DX: E78.5 Hyperlipidemia, unspecified (principal); R73.9 Hyperglycemia, unspecified
CPT/HCPCS: 36415; 80061; 83036

== ENCOUNTER 2022-02-14 14:19 | Outpatient (CLI) | payer MEDICAID ==
[2022-02-14 14:44] LABS: Basophils # (Auto) 0.1 K/mm3 (0.0-0.1); Basophils % (Auto) 0.9 % (0.0-1.8); Eosinophils # (Auto) 0.3 K/mm3 (0.0-0.4); Eosinophils % (Auto) 2.8 % (0.0-4.3); Hematocrit 38.1 % (30.3-42.9); Hemoglobin 12.2 gm/dl (10.1-14.3); Lymphocytes # (Auto) 3.7 K/mm3 (1.2-5.4); Lymphocytes % (Auto) 33.5 % (13.4-35.0); Mean Corpuscular HGB Conc 32 % (30-34); Mean Corpuscular Volume 89 fl (79-97); Monocytes % (Auto) 9.6 % (0.0-7.3); Platelet Count 268 K/mm3 (140-440); Red Blood Count 4.29 M/mm3 (3.65-5.03); Red Cell Distribution Width 13.4 % (13.2-15.2)
[2022-02-14 15:04] LABS: Alanine Aminotransferase 15 units/L (7-56); Albumin 4.3 g/dL (3.9-5); Blood Urea Nitrogen 9 mg/dL (7-17); Calcium 9.9 mg/dL (8.4-10.2); Chol/HDL Ratio 3.64 %; HDL Cholesterol 48 mg/dL (40-59); Hemolysis Index 2; LDL Cholesterol,Direct 115 mg/dL (50-130)
[2022-02-14 15:17] LABS: BUN/Creatinine Ratio 18
== END 2022-02-14 14:20 | disposition home or self-care (01) ==
LOC: LAB 14:19
PROVIDERS: ATTEND Internal Medicine
DX: Z00.00 Encounter for general adult medical examination without abnormal findings (principal); R73.03 Prediabetes; E55.9 Vitamin D deficiency, unspecified; E78.5 Hyperlipidemia, unspecified; R53.83 Other fatigue
CPT/HCPCS: 36415; 80053; 80061; 82306; 83036; 84443; 85025

== ENCOUNTER 2022-03-02 04:51 | Emergency (ER) | payer MEDICAID ==
[2022-03-02] MEDS ORDERED: levETIRAcetam 1000 MG/NS 0.75% 1,000 MG/100 ML BAG IV ONE (04:58)
[2022-03-02] MEDS ORDERED: LORazepam 2 MG/ML VIAL IV ONE (05:03)
[2022-03-02] MEDS ORDERED: SODIUM CHLORIDE 0.9% 1000 ML 1,000 ML IV ONE (05:04)
--- NOTE | 2022-03-02 05:26 | Emergency Department Report ---
<SHANKAR GUTIERREZ - Last Filed: 03/02/22 05:22> ED General Adult HPI - General Chief complaint: Seizure Stated complaint: SEIZURES Time Seen by Provider: 03/02/22 05:22 Source: EMS Mode of arrival: Stretcher Limitations: Altered Mental Status - History of Present Illness Initial comments: Patient is a 46-year-old female who presents with seizure. Per EMS patient had a seizure for the last 20 minutes. They gave her 10 of Versed and the seizure stopped patient had another seizure in the ER she was given 4 of Ativan and 1 mg of Keppra and the seizure stopped. Patient was placed in a sitting position and placed on supplemental oxygen. Patient has a history of seizures and noncompliance history is limited due to patient's condition. Severity scale (0 -10): 0 - Related Data Previous Rx's Medication Instructions Recorded Last Taken Type OXcarbazepine [Trileptal] 300 mg PO BID #60 tablet 01/21/20 Unknown Rx OXcarbazepine [Trileptal] 300 mg PO BID #60 tablet 01/21/20 Unknown Rx levETIRAcetam [Keppra TAB] 1,000 mg PO BID #60 tab 12/10/20 Unknown Rx Allergies Allergy/AdvReac Type Severity Reaction Status Date / Time No Known Allergies Allergy Unverified 02/23/18 05:03 ED Review of Systems Comment: Unobtainable due to pts medical conditions ED Past Medical Hx - Past Medical History Previous Medical History?: Yes Hx Seizures: Yes - Social History Smoking Status: Unknown if ever smoked - Medications Home Medications: Home Medications Medication Instructions Recorded Confirmed Last Taken Type OXcarbazepine [Trileptal] 300 mg PO BID #60 tablet 01/21/20 Unknown Rx OXcarbazepine [Trileptal] 300 mg PO BID #60 tablet 01/21/20 Unknown Rx levETIRAcetam [Keppra TAB] 1,000 mg PO BID #60 tab 12/10/20 Unknown Rx ED Physical Exam - General Limitations: Altered Mental Status General appearance: alert, in no apparent distress - Head Head exam: Present: atraumatic, normocephalic - Eye Eye exam: Present: normal appearance - ENT ENT exam: Present: mucous membranes moist - Neck Neck exam: Present: normal inspection - Respiratory Respiratory exam: Present: normal lung sounds bilaterally. Absent: respiratory distress - Cardiovascular Cardiovascular Exam: Present: regular rate, normal rhythm. Absent: systolic murmur, diastolic murmur, rubs, gallop - GI/Abdominal GI/Abdominal exam: Present: soft, normal bowel sounds - Extremities Exam Extremities exam: Present: normal inspection - Back Exam Back exam: Present: normal inspection - Neurological Exam Neurological exam: Present: alert, oriented X3 - Psychiatric Psychiatric exam: Present: normal affect, normal mood - Skin Skin exam: Present: warm, dry, intact, normal color. Absent: rash ED Medical Decision Making - EKG Data 03/02/22 05:25 EKG time 5: 11 rate 89 sinus rhythm impression normal EKG no ST segment elevation no T wave inversion - Medical Decision Making Chief medical diagnosis seizure secondary to noncompliance Differential medical diagnosis subdural hemorrhage, urinary tract infection, electrolyte abnormality I will give IV Ativan IV Keppra CT scan of head chest x-ray IV fluids if patient has another seizure I will give patient fosfomycin. Patient had a recent EEG in 2019 which did not show any status epilepticus. Per review of several medical charts and the record patient is noncompliant with her Keppra. Patient has previously been intubated before for her seizures however patient is satting well 100% and seizure stopped will remain patient on supplemental oxygen and will see if patient continues to have a gag reflex and will do frequent amelia ssessments ED Disposition Clinical Impression: Body mass index of 60 or higher, Medical non-compliance, Seizure Disposition: HOME / SELF CARE / HOMELESS Condition: Good Additional Instructions: Recommend the patient remain compliant with her seizure medications, and take her seizure medications. Noncompliance with seizure medications may cause breakthrough seizure, which can cause , disability, paralysis, loss of quality of life. Patient currently has refills and full pill bottles of her prescriptions, so therefore recommend patient take her prescriptions. Avoid consumption of alcohol, tobacco and smoke products. Patient is found to have excessive body mass index of 62.2. Strongly recommend that the patient exercise, and lose weight aggressively. Patient is also encouraged to eat an appropriate diet, and avoid consumption of sugar, processed foods, and simple carbohydrates. I do recommend follow-up with your primary care doctor or neurologist within the next week. Patient may have obesity hypoventilation syndrome or obstructive sleep apnea, likely secondary to body mass index of 62.2. In addition to dieting, and losing weight, strongly recommend follow-up with an outpatient primary care doctor, neurologist, or sleep specialist for dedicated sleep study, to ascertain presence of obstructive sleep apnea. Do not drive or operate motor vehicles for the next 6 months. Please return to the emergency room right away with new pain, worsened pain, migration of pain, projectile vomiting, change in mental status, confusion, inability tolerate liquid feeds, new, worsened or different symptoms not present on the initial emergency room evaluation Referrals: LOIS LEE MD [Primary Care Provider] - 3-5 Days SULEIMAN DELGADO MD [Staff Physician] - 3-5 Days SABINE CABRERA MD [Referring] - 3-5 Days Forms: Work/School Release Form(ED) <SHANKAR FISCHER - Last Filed: 03/02/22 10:08> ED Review of Systems ROS: Stated complaint: SEIZURES Other details as noted in HPI ED Course Vital Signs 03/02/22 03/02/22 03/02/22 04:52 05:20 05:26 Temperature 98.0 F Pulse Rate 116 H 87 82 Respiratory 16 24 19 Rate Blood Pressure 86/60 Blood Pressure 128/74 [Left] O2 Sat by Pulse 100 100 100 Oximetry 03/02/22 03/02/22 03/02/22 05:31 05:57 06:01 Temperature Pulse Rate 82 92 H Respiratory 19 22 13 Rate Blood Pressure Blood Pressure [Left] O2 Sat by Pulse 100 97 98 Oximetry 03/02/22 03/02/22 03/02/22 06:06 06:15 06:31 Temperature Pulse Rate 98 H 92 H Respiratory 14 10 L Rate Blood Pressure 142/79 141/99 Blood Pressure [Left] O2 Sat by Pulse 98 99 98 Oximetry 03/02/22 03/02/22 06:45 07:00 Temperature Pulse Rate 85 81 Respiratory 19 18 Rate Blood Pressure 141/99 Blood Pressure [Left] O2 Sat by Pulse 97 97 Oximetry - Reevaluation(s) Reevaluation #1: 03/02/22 10:05 The patient is seen and examined. She is awake and alert. She denies physical pain. She has 2 full pill bottles next to her, oxcarbazepine, 300 mg twice daily, with 5 refills, and Keppra, 1000 mg, with 1 refill. She denies physical pain or respiratory difficulty at this time, and she also denies irritative urinary symptoms. Patient observed in this department for hours without clinical decompensation. Advised to take her medications. Do not clinically suspect acute decompensated congestive heart failure at this time, she is in no respiratory distress, and saturating at 100% on room air. I suspect that the patient has obesity hypoventilation syndrome, as well as probable obstructive sleep apnea. She will need to follow-up with an outpatient primary care doctor or sleep physician for outpatient sleep testing. - Pulse Oximetry Interpretation Digit-Finger Initial Pulse Oximetry Readin O2 Sat by Pulse Oximetry: 99 Actions Taken: none ED Medical Decision Making - Lab Data Result diagrams: 03/02/22 05:19 03/02/22 05:19 Vital Signs 03/02/22 03/02/22 03/02/22 04:52 05:20 05:26 Temperature 98.0 F Pulse Rate 116 H 87 82 Respiratory 16 24 19 Rate Blood Pressure 86/60 Blood Pressure 128/74 [Left] O2 Sat by Pulse 100 100 100 Oximetry 03/02/22 03/02/22 03/02/22 05:31 05:57 06:01 Temperature Pulse Rate 82 92 H Respiratory 19 22 13 Rate Blood Pressure Blood Pressure [Left] O2 Sat by Pulse 100 97 98 Oximetry 03/02/22 03/02/22 03/02/22 06:06 06:15 06:31 Temperature Pulse Rate 98 H 92 H Respiratory 14 10 L Rate Blood Pressure 142/79 141/99 Blood Pressure [Left] O2 Sat by Pulse 98 99 98 Oximetry 03/02/22 03/02/22 06:45 07:00 Temperature Pulse Rate 85 81 Respiratory 19 18 Rate Blood Pressure 141/99 Blood Pressure [Left] O2 Sat by Pulse 97 97 Oximetry Lab Results 03/02/22 03/02/22 03/02/22 Range/Units 05:19 05:19 06:16 WBC 8.3 (4.5-11.0) K/mm3 RBC 4.13 (3.65-5.03) M/mm3 Hgb 11.8 (10.1-14.3) gm/dl Hct 36.4 (30.3-42.9) % MCV 88 (79-97) fl MCH 29 (28-32) pg MCHC 32 (30-34) % RDW 13.6 (13.2-15.2) % Plt Count 241 (140-440) K/mm3 Lymph % (Auto) 32.4 (13.4-35.0) % [place] % (Auto) 10.2 H (0.0-7.3) % Eos % (Auto) 2.5 (0.0-4.3) % Baso % (Auto) 0.8 (0.0-1.8) % Lymph # (Auto) 2.7 (1.2-5.4) K/mm3 [place] # (Auto) 0.9 H (0.0-0.8) K/mm3 Eos # (Auto) 0.2 (0.0-0.4) K/mm3 Baso # (Auto) 0.1 (0.0-0.1) K/mm3 Seg Neutrophils % 54.1 (40.0-70.0) % Seg Neutrophils # 4.5 (1.8-7.7) K/mm3 Sodium 136 L (137-145) mmol/L Potassium 3.6 (3.6-5.0) mmol/L Chloride 101.2 (98-107) mmol/L Carbon Dioxide 25 (22-30) mmol/L Anion Gap 13 mmol/L BUN 11 (7-17) mg/dL Creatinine 0.6 (0.6-1.2) mg/dL Estimated GFR > 60 ml/min BUN/Creatinine Ratio 18 % Glucose 133 H (65-100) mg/dL Calcium 9.0 (8.4-10.2) mg/dL Total Bilirubin < 0.20 (0.1-1.2) mg/dL AST 12 (5-40) units/L ALT 21 (7-56) units/L Alkaline Phosphatase 63 (35-129) units/L Total Protein 6.8 (6.3-8.2) g/dL Albumin 4.3 (3.9-5) g/dL Albumin/Globulin Ratio 1.7 % HCG, Quant < 2 (0-4) mIU/mL - Radiology Data Radiology results: pending, report reviewed, image reviewed CHEST 1 VIEW 03/02/2022 7:12 AM INDICATION / CLINICAL INFORMATION: seizure. COMPARISON: 01/21/2020 FINDINGS: SUPPORT DEVICES: None. HEART / MEDIASTINUM: Stable. LUNGS / PLEURA: Lung volumes have diminished. Mild increasing opacity is likely vascular congestion. No pneumothorax. ADDITIONAL FINDINGS: No significant additional findings. IMPRESSION: Decreasing lung volumes with susp ected vascular congestion/edema. Signer Name: Herson Davalos MD Signed: 03/02/2022 7:19 AM Workstation Name: [id number] CT HEAD WITHOUT CONTRAST INDICATION / CLINICAL INFORMATION: Seizure. TECHN IQUE: All CT scans at this location are performed using CT dose reduction for ALARA by means of automated exposure control. COMPARISON: CT head without contrast from 01/20/2020. FINDINGS: BRAIN PARENCHYMA: No acute intracranial hemorrhage. No evidence of recent infarct. No mass effect or midline shift. VENTRICULAR SYSTEM/EXTRA-AXIAL SPACES: Ventricles are normal for age. No extra- axial fluid collection. ORBITS: Normal as visualized. SKELETAL SYSTEM/SOFT TISSUES: Normal bones and soft tissues. PARANASAL SINUSES/MASTOID AIR CELLS: No significant abnormality. ADDITIONAL FINDINGS: None. IMPRESSION: 1. No acute intracranial abnormality. Signer Name: Junior Avila MD Signed: 03/02/2022 5:09 AM Workstation Name: [id number] Critical care attestation.: If time is entered above; I have spent that time in minutes in the direct care of this critically ill patient, excluding procedure time. ED Disposition Is pt being admited?: No Does the pt Need Aspirin: No
[2022-03-02 06:04] LABS: Basophils # (Auto) 0.1 K/mm3 (0.0-0.1); Basophils % (Auto) 0.8 % (0.0-1.8); Eosinophils # (Auto) 0.2 K/mm3 (0.0-0.4); Eosinophils % (Auto) 2.5 % (0.0-4.3); Hematocrit 36.4 % (30.3-42.9); Hemoglobin 11.8 gm/dl (10.1-14.3); Lymphocytes # (Auto) 2.7 K/mm3 (1.2-5.4); Lymphocytes % (Auto) 32.4 % (13.4-35.0); Mean Corpuscular HGB Conc 32 % (30-34); Mean Corpuscular Volume 88 fl (79-97); Monocytes # (Auto) 0.9 K/mm3 (0.0-0.8); Monocytes % (Auto) 10.2 % (0.0-7.3); Platelet Count 241 K/mm3 (140-440); Red Blood Count 4.13 M/mm3 (3.65-5.03); Red Cell Distribution Width 13.6 % (13.2-15.2)
[2022-03-02 06:13] LABS: Alanine Aminotransferase 21 units/L (7-56); Albumin 4.3 g/dL (3.9-5); Blood Urea Nitrogen 11 mg/dL (7-17); Hemolysis Index 8
--- NOTE | 2022-03-02 06:13 | Cat Scan Report ---
CT HEAD WITHOUT CONTRAST INDICATION / CLINICAL INFORMATION: Seizure. TECHNIQUE: All CT scans at this location are performed using CT dose reduction for ALARA by means of automated exposure control. COMPARISON: CT head without contrast from 01/20/2020. FINDINGS: BRAIN PARENCHYMA: No acute intracranial hemorrhage. No evidence of recent infarct. No mass effect or midline shift. VENTRICULAR SYSTEM/EXTRA-AXIAL SPACES: Ventricles are normal for age. No extra-axial fluid collection . ORBITS: Normal as visualized. SKELETAL SYSTEM/SOFT TISSUES: Normal bones and soft tissues. PARANASAL SINUSES/MASTOID AIR CELLS: No significant abnormality. ADDITIONAL FINDINGS: None. IMPRESSION: 1. No acute intracranial abnormality. Signer Name: Junior Avila MD Signed: 03/02/2022 6:09 AM Workstation Name: [id number]
[2022-03-02 06:18] LABS: BUN/Creatinine Ratio 18
--- NOTE | 2022-03-02 08:23 | XRay Report ---
CHEST 1 VIEW 03/02/2022 7:12 AM INDICATION / CLINICAL INFORMATION: seizure. COMPARISON: 01/21/2020 FINDINGS: SUPPORT DEVICES: None. HEART / MEDIASTINUM: Stable. LUNGS / PLEURA: Lung volumes have diminished. Mild increasing opacity is likely vascular congestion. No pneumothorax. ADDITIONAL FINDINGS: No significant additional findings. IMPRESSION: Decreasing lung volumes with suspected vascular congestion/edema. Signer Name: Herson Davalos MD Signed: 03/02/2022 8:19 AM Workstation Name: [email or web address]
[2022-03-02] MEDS ORDERED: SODIUM BICARB 8.4% 50 MEQ/50 ML SYRINGE IV ONE (10:23)
[2022-03-02] MEDS ORDERED: EPINEPHrine 1 MG/10 ML SYRINGE ONE (10:23)
[2022-03-02 12:57] VITALS: BP 122/68
--- NOTE | 2022-03-05 13:12 | Electrocardiograph Report ---
[facility] Test Date: 2022-03-02 Test Time: 05:11:41 Pat Name: YAYA CIFUENTES Department: Room: Gender: F Natural Resource Technician: [id number] : 1975 Requested By: SHANKAR GUTIERREZ Order Number: [id number] Reading MD: Troy Ponce Measurements Intervals [place] Rate: 89 P: 56 TN: 151 QRS: 5 QRSD: 87 T: 34 QT: 392 QTc: 477 Interpretive Statements Sinus rhythm Poor R wave progression No previous ECG available for comparison Electronically Signed On 03-05-2022 13:11:41 EDT by Troy Ponce
== END 2022-03-02 15:00 | disposition home or self-care (01) ==
LOC: ED 04:51
DX: G40.909 Epilepsy, unspecified, not intractable, without status epilepticus (principal); Z68.44 Body mass index [BMI] 60.0-69.9, adult; Z91.14 Patient's other noncompliance with medication regimen
CPT/HCPCS: 36415; 70450; 71045; 80053; 84702; 85025; 93005; 96365; 96366; 96375; 99285; J0171; J1953; J2060; J7030